=== PATIENT | male | born 1980 | race Caucasian/White ===

== ENCOUNTER 2018-07-09 11:35 | Inpatient (IN) | payer OTHER ==
[2018-07-09 12:41] VITALS: BMI 33.0
--- NOTE | 2018-07-09 14:42 | HP ---
CIWA Score Nausea/Vomitin Muscle Tremors: 7-Severe,w/o Arm Extended Anxiety: 4-Mod. Anxious/Guarded Agitation: 1-Slight > Activity Paroxysmal Sweats: 2 Orientation: 0-Oriented Tacttile Disturbances: 0-None Auditory Disturbances: 0-None Visual Disturbances: 2-Mild Sensitivity Headache: 3-Moderate CIWA-Ar Total Score: 21 - Admission Criteria OASAS Guidelines: Admission for Medically Managed Detox: Requires at least one of the followin. CIWA greater than 12 2. Seizures within the past 24 hours 3. Delirium tremens within the past 24 hours 4. Hallucinations within the past 24 hours 5. Acute intervention needed for co occurring medical disorder 6. Acute intervention needed for co occurring psychiatric disorder 7. Severe withdrawal that cannot be handled at a lower level of care (continued vomiting, continued diarrhea, abnormal vital signs) requiring intravenous medication and/or fluids 8. Patient presents the following: CIWA greater than 12 Admission Criteria Met: Admission criteria met Admission ROS [facility] Allergies/Adverse Reactions: Allergies Allergy/AdvReac Type Severity Reaction Status Date / Time phenobarbital Allergy Severe Hives Verified 07/09/18 15:38 Fish Containing Products Allergy Verified 07/09/18 15:38 History of Present Illness: patient here requesting detox fro etoh use , reports 1 pint /day x several months , reports tremors , w/d seizure x 2 most recently 1 year ago went to [facility] , latest use today current Gwendolyn 0.027 , reports finished all rx benzo # 150 from 07/05/18 reports he gave them to his sisters and took 7 at a time daily up to 10 x /day . Denies DUi/ DWI , has DL , denies driving while intoxicated. heroin : since age 22 , inhalation x 10 years , then IVDU in [place] , latest use 2 days ago 2 bundles , needles from pharmacy , denies sharing, + re-using , denies abscess, denies OD , on MMTP since 8 years ago @ [facility] , highest dose 180 mg , prior MMTP in 2001 -2002 , highest dose 100 mg Marisol [place] , tapered off , sober x 1 year . utox + fen , denies use tobacco ; denies cocaine - occasional use cannabis use - in the past , first age of use 11 . PMHX :denies PSHx :jose 4 years ago PSych : anxiety SHx : evicted from apartment , unemployed , finances habit through " side jobs " . denies other legal issues . no children Exam Limitations: Clinical Condition - Ebola screening Have you traveled outside of the country in the last 21 days: No Have you had contact with anyone from an Ebola affected area: No Have you been sick,other than usual withdrawal symptoms: No Do you have a fever: No - Review of Systems Constitutional: See HPI EENT: reports: Other (denies vision loss, denies dysphagia) Respiratory: reports: No Symptoms reported Cardiac: reports: No Symptoms Reported GI: reports: See HPI : reports: No Symptoms Reported Musculoskeletal: reports: See HPI Integumentary: reports: See HPI Neuro: reports: Headache Endocrine: reports: No Symptoms Reported Psychiatric: reports: Orientated x3, Agitated, Anxious Patient History - Smoking Cessation Smoking history: Never smoked - Substances Abused Alcohol-vodka Route: Oral Frequency: Daily Amount used: 2 pts. Age of first use: 13 Date of Last Use: 07/08/18 Xanax Route: Oral Amount used: 10 tabs. (2 mg.) Age of first use: 33 Date of Last Use: 07/09/18 Family Disease History - Family Disease History Family Disease History: CA: Mother (ovarian CA 59 ), Other: Father (62 A & W ) , Mother, Brother (1 half- brother Lyme dz ), Sister ( 2 sisters A & W ,1 sister 27 d. 2 y. ago heroin OD ) Admission Physical Exam BHS - Vital Signs Vital Signs: Vital Signs - 24 hr 07/09/18 12:38 Temperature 98.1 F Pulse Rate 81 Respiratory 20 Rate Blood Pressure 137/96 - Physical General Appearance: Yes: Disheveled, Moderate Distress HEENTM: Yes: EOMI, Hearing grossly Normal, Normocephalic, Normal Voice Respiratory: Yes: Chest Non-Tender, Lungs Clear, Normal Breath Sounds Neck: Yes: No masses,lesions,Nodules Breast: Yes: Breast Exam Deferred Cardiology: Yes: Regular Rhythm, Regular Rate, S1, S2 Abdominal: Yes: Normal Bowel Sounds, Non Tender, Soft, Protuberent Genitourinary: Yes: Within Normal Limits Back: Yes: Normal Inspection Extremities: Yes: Tremors Neurological: Yes: Motor Strength 5/5 Integumentary: Yes: Track Murray - Diagnostic (1) Alcohol dependence Current Visit: Yes Status: Acute Qualifiers: Substance use status: in withdrawal (2) Opioid dependence on agonist therapy Current Visit: Yes Status: Chronic (3) Sedative, hypnotic or anxiolytic abuse Current Visit: Yes Status: Acute (4) Nicotine dependence Current Visit: Yes Status: Chronic Qualifiers: Nicotine product type: cigarettes BHS Breath Alcohol Content Breath Alcohol Content: 0.027 Urine Drug Screen - Results Drug Screen Negative: No Urine Drug Screen Results: OPI-Opiates, AMP-Amphetamines, MET-Methamphetamine, BZO-Benzodiazepines, MTD-Methadone, FEN-Fentanyl
[2018-07-09] MEDS ORDERED: ACETAMINOPHEN 325 MG TABLET (FP) PO PRN (14:48)
[2018-07-09] MEDS ORDERED: MENTHOL/PHENOL 1 EACH UD MM PRN (14:48)
[2018-07-09] MEDS ORDERED: MAGNESIUM CITRATE 300 ML BOTTLE PO PRN (14:48)
[2018-07-09] MEDS ORDERED: MAG HYDROX/AL HYDROX/SIMETH 30 ML UNIT-DOSE CUP PO PRN (14:48)
[2018-07-09] MEDS ORDERED: P-EPHED 60MG/TRIPROLIDI 2.5MG TABLET PO PRN (14:48)
[2018-07-09] MEDS ORDERED: MAGNESIUM HYDROX 2400MG/30ML ORAL SUSPENSION 30 ML CUP PO PRN (14:48)
[2018-07-09] MEDS ORDERED: NICOTINE POLACRILEX 2 MG GUM BC PRN (14:48)
[2018-07-09] MEDS ORDERED: IBUPROFEN 400 MG TABLET (FP) PO PRN (14:48)
[2018-07-09] MEDS ORDERED: guaiFENesin/D-METHORPHAN HB 10 ML UNIT-DOSE CUPS PO PRN (14:48)
[2018-07-09] MEDS ORDERED: hydrOXYzine PAMOATE 25 MG CAPSULE (FP) PO PRN (14:53)
[2018-07-09] MEDS: chlordiazePOXIDE HCL 25 MG CAPSULE PO SCH ×2 (17:09→22:17)
[2018-07-09] MEDS: chlordiazePOXIDE HCL 25 MG CAPSULE PO PRN (20:25)
[2018-07-09] MEDS ORDERED: MELATONIN 5 MG TABLETS PO PRN (22:00)
[2018-07-09] MEDS: THIAMINE HCL 100 MG TABLET (FP) PO SCH (22:17)
[2018-07-10] MEDS: chlordiazePOXIDE HCL 25 MG CAPSULE PO SCH ×2 (05:23→10:44)
[2018-07-10] MEDS ORDERED: METHADONE HCL 10 MG TABLET PO SCH (06:00)
[2018-07-10] MEDS ORDERED: METHADONE HCL 10 MG TABLET ONE (09:02)
[2018-07-10] MEDS ORDERED: METHADONE HCL 40 MG DISPERSABLE TABLET ONE (09:03)
[2018-07-10 10:32] LABS: HEMATOCRIT 39.5 % (35.4-49); HEMOGLOBIN 13.1 GM/dL (11.7-16.9); MCH 29.5 pg (25.7-33.7); MCHC 33.2 g/dl (32.0-35.9); MEAN CELL VOLUME 88.9 fl (80-96); MEAN PLT VOLUME 9.3 fl (7.5-11.1); PLATELET COUNT 248 K/MM3 (134-434); RBC 4.44 M/mm3 (4.00-5.60); RDW 13.9 % (11.9-15.9); WHITE BLOOD COUNT 4.8 K/mm3 (4.0-10.0)
[2018-07-10] MEDS: METHADONE 120 MG, METHADONE 20 MG PO SCH (10:44)
[2018-07-10 10:51] LABS: ALBUMIN 4.2 g/dl (3.4-5.0); ALK PHOS 80 U/L (45-117); ANION GAP 8 MMOL/L (8-16); BILIRUBIN,TOTAL 0.6 mg/dL (0.2-1); BLOOD UREA NITROGEN 14 mg/dL (7-18); CALCIUM 9.9 mg/dL (8.5-10.1); CHLORIDE 102 mmol/L (98-107); CO2 29 mmol/L (21-32); CREATININE 0.9 mg/dL (0.55-1.3); GLUCOSE,RANDOM 78 mg/dL (74-106); POTASSIUM 4.2 mmol/L (3.5-5.1); SGOT/AST 15 U/L (15-37); SGPT/ALT 24 U/L (13-61); SODIUM 139 mmol/L (136-145); TOT PROT 8.1 g/dl (6.4-8.2)
[2018-07-10] MEDS: PRENATAL VITAMINS W/ FOLIC ACID TABLET (FP) PO SCH (11:14)
--- NOTE | 2018-07-10 11:25 | PN ---
S CIWA - CIWA Score Nausea/Vomitin-Mild Nausea/No Vomiting Muscle Tremors: 4-Moderate,w/Arms Extend Anxiety: 4-Mod. Anxious/Guarded Agitation: 4-Moderately Restless Paroxysmal Sweats: 1-Minimal Palms Moist Orientation: 1-Uncertain about Date Tacttile Disturbances: 0-None Auditory Disturbances: 0-None Visual Disturbances: 0-None Headache: 2-Mild CIWA-Ar Total Score: 17 BHS Progress Note (SOAP) Subjective: tremor sweating trouble sleep at night Objective: 07/10/18 11:24 Vital Signs Temperature 96.9 F L 07/10/18 09:08 Pulse Rate 70 07/10/18 09:08 Respiratory Rate 18 07/10/18 09:08 Blood Pressure 110/68 07/10/18 09:08 O2 Sat by Pulse Oximetry (%) Laboratory Last Values WBC 4.8 K/mm3 (4.0-10.0) 07/10/18 06:00 RBC 4.44 M/mm3 (4.00-5.60) 07/10/18 06:00 Hgb 13.1 GM/dL (11.7-16.9) 07/10/18 06:00 Hct 39.5 % (35.4-49) 07/10/18 06:00 MCV 88.9 fl (80-96) 07/10/18 06:00 MCH 29.5 pg (25.7-33.7) 07/10/18 06:00 MCHC 33.2 g/dl (32.0-35.9) 07/10/18 06:00 RDW 13.9 % (11.9-15.9) 07/10/18 06:00 Plt Count 248 K/MM3 (134-434) 07/10/18 06:00 MPV 9.3 fl (7.5-11.1) 07/10/18 06:00 Sodium 139 mmol/L (136-145) 07/10/18 06:00 Potassium 4.2 mmol/L (3.5-5.1) 07/10/18 06:00 Chloride 102 mmol/L (98-107) 07/10/18 06:00 Carbon Dioxide 29 mmol/L (21-32) 07/10/18 06:00 Anion Gap 8 MMOL/L (8-16) 07/10/18 06:00 BUN 14 mg/dL (7-18) 07/10/18 06:00 Creatinine 0.9 mg/dL (0.55-1.3) 07/10/18 06:00 Creat Clearance w eGFR > 60 (>60) 07/10/18 06:00 Random Glucose 78 mg/dL (74-106) 07/10/18 06:00 Calcium 9.9 mg/dL (8.5-10.1) 07/10/18 06:00 Total Bilirubin 0.6 mg/dL (0.2-1) 07/10/18 06:00 AST 15 U/L (15-37) 07/10/18 06:00 ALT 24 U/L (13-61) 07/10/18 06:00 Alkaline Phosphatase 80 U/L (45-117) 07/10/18 06:00 Total Protein 8.1 g/dl (6.4-8.2) 07/10/18 06:00 Albumin 4.2 g/dl (3.4-5.0) 07/10/18 06:00 lab noted Assessment: 07/10/18 11:25 withdrawal sx Plan: continue detox
--- NOTE | 2018-07-10 13:39 | CONSULT ---
[facility] Psychiatric Consult - Data Date of interview: 07/10/18 Admission source: Self-referred Identifying data: Mr Roberts is a 38 years old single male, unemployed with no source of income, living with parents seking detox for alcohol and benzodiazepine Substance Abuse History: Reports history of alcohol and xanax use. Refer to addiction counselor's summary for further information Medical History: unremarkable except for history of alcohol withdraal seizure. Patient is on methadone 180 mg/day Psychiatric History: Reports being diagnosed with ADHD and anxiety 14 years ago and started on medications. Reports seeing a private psychiatrist located on [facility] in [place], [place] for the past 11 years. Reports being prescribed Zoloft 50 mg po daily, Xanax 2 mg 5x daily and Adderal 30 mg. Reports that he saw that psychiatrist last last week. However the psychiatrist does not want to see him anymore because he is abusing Xanax and buying it off the street. Denies previous psychiatric hospitalization or suicidl attempt. At present, reorts feeling anxious and sleeping poorly. He does not want to continue Zoloft citing he gets no help from it Physical/Sexual Abuse/Trauma History: Denies history of emotional, physical or sexual abuse as well as DV relationship Mental Status Exam - Mental Status Exam Alert and Oriented to: Time, Place Cognitive Function: Fair Patient Appearance: Well Groomed Mood: Anxious Affect: Appropriate Patient Behavior: Cooperative Speech Pattern: Clear Voice Loudness: Normal Thought Process: Intact, Goal Oriented Hallucinations: Denies Suicidal Ideation: Denies Insight/Judgement: Fair Sleep: Poorly Appetite: Good Muscle strength/Tone: Normal Gait/Station: Normal Psychiatric Findings - Problem List ([place] 1, 2,3) (1) ADHD (attention deficit hyperactivity disorder), inattentive type Current Visit: Yes Status: Chronic (2) Anxiety disorder Current Visit: Yes Status: Chronic (3) Substance-induced anxiety disorder Current Visit: Yes Status: Acute (4) Substance-induced sleep disorder Current Visit: Yes Status: Acute (5) Alcohol dependence with withdrawal Current Visit: Yes Status: Acute (6) Sedative, hypnotic or anxiolytic dependence with withdrawal, unspecified Current Visit: Yes Status: Acute (7) Opioid dependence on agonist therapy Current Visit: Yes Status: Chronic - Initial Treatment Plan Initial Treatment Plan: 1) Start Belsomra 10 mg po HS prn for insomnia and Hydroxizine 50 mg po Q 4hrs prn for anxiety. 2) Continue inpatient detoxification
[2018-07-10] MEDS ORDERED: hydrOXYzine PAMOATE 50 MG CAPSULE (FP) PO PRN (13:45)
[2018-07-10] MEDS: chlordiazePOXIDE HCL 10 MG CAPSULE PO SCH ×2 (17:31→22:32)
[2018-07-10] MEDS: THIAMINE HCL 100 MG TABLET (FP) PO SCH (22:32)
[2018-07-11] MEDS: chlordiazePOXIDE HCL 10 MG CAPSULE PO SCH ×2 (05:28→10:19)
--- NOTE | 2018-07-11 10:08 | PN ---
S CIWA - CIWA Score Nausea/Vomitin-Mild Nausea/No Vomiting Muscle Tremors: 3 Anxiety: 2 Agitation: 2 Paroxysmal Sweats: 1-Minimal Palms Moist Orientation: 0-Oriented Tacttile Disturbances: 0-None Auditory Disturbances: 0-None Visual Disturbances: 0-None Headache: 2-Mild CIWA-Ar Total Score: 11 S Progress Note (SOAP) Subjective: tremor sweating trouble concentration Objective: 07/11/18 10:18 Vital Signs Temperature 97.5 F L 07/11/18 09:14 Pulse Rate 73 07/11/18 09:14 Respiratory Rate 17 07/11/18 09:14 Blood Pressure 102/63 07/11/18 09:14 O2 Sat by Pulse Oximetry (%) Laboratory Last Values WBC 4.8 K/mm3 (4.0-10.0) 07/10/18 06:00 RBC 4.44 M/mm3 (4.00-5.60) 07/10/18 06:00 Hgb 13.1 GM/dL (11.7-16.9) 07/10/18 06:00 Hct 39.5 % (35.4-49) 07/10/18 06:00 MCV 88.9 fl (80-96) 07/10/18 06:00 MCH 29.5 pg (25.7-33.7) 07/10/18 06:00 MCHC 33.2 g/dl (32.0-35.9) 07/10/18 06:00 RDW 13.9 % (11.9-15.9) 07/10/18 06:00 Plt Count 248 K/MM3 (134-434) 07/10/18 06:00 MPV 9.3 fl (7.5-11.1) 07/10/18 06:00 Sodium 139 mmol/L (136-145) 07/10/18 06:00 Potassium 4.2 mmol/L (3.5-5.1) 07/10/18 06:00 Chloride 102 mmol/L (98-107) 07/10/18 06:00 Carbon Dioxide 29 mmol/L (21-32) 07/10/18 06:00 Anion Gap 8 MMOL/L (8-16) 07/10/18 06:00 BUN 14 mg/dL (7-18) 07/10/18 06:00 Creatinine 0.9 mg/dL (0.55-1.3) 07/10/18 06:00 Creat Clearance w eGFR > 60 (>60) 07/10/18 06:00 Random Glucose 78 mg/dL (74-106) 07/10/18 06:00 Calcium 9.9 mg/dL (8.5-10.1) 07/10/18 06:00 Total Bilirubin 0.6 mg/dL (0.2-1) 07/10/18 06:00 AST 15 U/L (15-37) 07/10/18 06:00 ALT 24 U/L (13-61) 07/10/18 06:00 Alkaline Phosphatase 80 U/L (45-117) 07/10/18 06:00 Total Protein 8.1 g/dl (6.4-8.2) 07/10/18 06:00 Albumin 4.2 g/dl (3.4-5.0) 07/10/18 06:00 RPR Titer Nonreactive (NONREACTIVE) 07/10/18 06:00 07/11/18 10:24 lab noted Assessment: 07/11/18 10:24 withdrawal sx Plan: continue detox
[2018-07-11] MEDS ORDERED: METHADONE HCL 10 MG TABLET ONE (10:18)
[2018-07-11] MEDS ORDERED: METHADONE HCL 40 MG DISPERSABLE TABLET ONE (10:18)
[2018-07-11] MEDS: PRENATAL VITAMINS W/ FOLIC ACID TABLET (FP) PO SCH (10:19)
[2018-07-11] MEDS: METHADONE 120 MG, METHADONE 20 MG PO SCH (10:23)
[2018-07-11] MEDS: chlordiazePOXIDE HCL 25 MG CAPSULE PO PRN (12:09)
[2018-07-11] MEDS: chlordiazePOXIDE HCL 25 MG CAPSULE PO SCH ×2 (16:48→22:00)
[2018-07-11] MEDS: THIAMINE HCL 100 MG TABLET (FP) PO SCH (22:00)
[2018-07-12] MEDS: chlordiazePOXIDE HCL 25 MG CAPSULE PO SCH ×2 (06:04→10:31)
[2018-07-12] MEDS ORDERED: METHADONE HCL 40 MG DISPERSABLE TABLET ONE (10:29)
[2018-07-12] MEDS ORDERED: METHADONE HCL 10 MG TABLET ONE (10:29)
[2018-07-12] MEDS: METHADONE 120 MG, METHADONE 20 MG PO SCH (10:30)
[2018-07-12] MEDS: PRENATAL VITAMINS W/ FOLIC ACID TABLET (FP) PO SCH (10:31)
[2018-07-12] MEDS: chlordiazePOXIDE HCL 25 MG CAPSULE PO PRN (12:42)
[2018-07-12] MEDS ORDERED: CYCLOBENZAPRINE HCL 10 MG TABLET (FP) PO PRN (14:08)
--- NOTE | 2018-07-12 15:50 | PN ---
BHS Progress Note (SOAP) Subjective: Sweating, Body Aches, Constipation, Tremors, H/A, Poor Appetite. Objective: PATIENT A & O X 3, OBSERVED AMBULATING ON UNIT. IN NO ACUTE DISTRESS. 07/12/18 15:49 Vital Signs Temperature 98.4 F 07/12/18 14:01 Pulse Rate 83 07/12/18 14:01 Respiratory Rate 18 07/12/18 14:01 Blood Pressure 133/82 07/12/18 14:01 O2 Sat by Pulse Oximetry (%) Laboratory Tests 07/10/18 07/10/18 07/10/18 06:00 06:00 06:00 WBC 4.8 RBC 4.44 Hgb 13.1 Hct 39.5 MCV 88.9 MCH 29.5 MCHC 33.2 RDW 13.9 Plt Count 248 MPV 9.3 Sodium 139 Potassium 4.2 Chloride 102 Carbon Dioxide 29 Anion Gap 8 BUN 14 Creatinine 0.9 Creat Clearance w eGFR > 60 Random Glucose 78 Calcium 9.9 Total Bilirubin 0.6 AST 15 ALT 24 Alkaline Phosphatase 80 Total Protein 8.1 Albumin 4.2 RPR Titer Nonreactive LABS NOTED. Assessment: 07/12/18 15:49 WITHDRAWAL SYMPTOMS. Plan: CONTINUE DETOX. INCREASE DAILY PO FLUID INTAKE.
[2018-07-12] MEDS: chlordiazePOXIDE 5 MG CAPSULE PO SCH ×2 (17:28→22:14)
[2018-07-12] MEDS: THIAMINE HCL 100 MG TABLET (FP) PO SCH (22:14)
[2018-07-13] MEDS: chlordiazePOXIDE 5 MG CAPSULE PO SCH ×2 (05:45→10:32)
[2018-07-13] MEDS ORDERED: METHADONE HCL 10 MG TABLET ONE (10:30)
[2018-07-13] MEDS ORDERED: METHADONE HCL 40 MG DISPERSABLE TABLET ONE (10:31)
[2018-07-13] MEDS: PRENATAL VITAMINS W/ FOLIC ACID TABLET (FP) PO SCH (10:32)
[2018-07-13] MEDS: METHADONE 120 MG, METHADONE 20 MG PO SCH (10:33)
--- NOTE | 2018-07-13 15:09 | PN ---
BHS Progress Note (SOAP) Subjective: Stomach Cramping, Tremors, Sweating, Anxious, Body Aches. Objective: PATIENT A & O X 3, OBSERVED AMBULATING ON UNIT. IN NO ACUTE DISTRESS. 07/13/18 15:08 Vital Signs Temperature 98.6 F 07/13/18 13:21 Pulse Rate 84 07/13/18 13:21 Respiratory Rate 16 07/13/18 13:21 Blood Pressure 110/64 07/13/18 13:21 O2 Sat by Pulse Oximetry (%) Laboratory Tests 07/10/18 07/10/18 07/10/18 06:00 06:00 06:00 WBC 4.8 RBC 4.44 Hgb 13.1 Hct 39.5 MCV 88.9 MCH 29.5 MCHC 33.2 RDW 13.9 Plt Count 248 MPV 9.3 Sodium 139 Potassium 4.2 Chloride 102 Carbon Dioxide 29 Anion Gap 8 BUN 14 Creatinine 0.9 Creat Clearance w eGFR > 60 Random Glucose 78 Calcium 9.9 Total Bilirubin 0.6 AST 15 ALT 24 Alkaline Phosphatase 80 Total Protein 8.1 Albumin 4.2 RPR Titer Nonreactive labs noted. Assessment: 07/13/18 15:08 WITHDRAWAL SYMPTOMS. Plan: CONTINUE DETOX. INCREASE DAILY PO FLUID INTAKE.
[2018-07-13] MEDS: chlordiazePOXIDE HCL 10 MG CAPSULE PO SCH ×2 (17:39→22:18)
[2018-07-13] MEDS: THIAMINE HCL 100 MG TABLET (FP) PO SCH (22:18)
[2018-07-14] MEDS: chlordiazePOXIDE HCL 10 MG CAPSULE PO SCH (05:36)
[2018-07-14 06:23] VITALS: BP 102/63; PULSE 69; TEMP 97.3
[2018-07-14] MEDS ORDERED: METHADONE 120 MG, METHADONE 20 MG PO SCH ×2 (08:43→10:00)
[2018-07-14] MEDS ORDERED: METHADONE HCL 10 MG TABLET ONE (08:57)
[2018-07-14] MEDS ORDERED: METHADONE HCL 40 MG DISPERSABLE TABLET ONE (08:58)
--- NOTE | 2018-07-14 11:33 | DS ---
[facility] Detox Discharge Summary Admission Date: 07/09/18 Discharge Date: 07/14/18 - History Present History: Alcohol Dependence Additional Comments: 38 years old male admitted on 07/09/18 for alcohol withdrawal stabilization completed detox regimen [facility] Mr. Roberts has been provided a list of medication and informed adherence with medications as prescribed keep a copy of medication list in wallet update your medication list whenever a medication change is made - Physical Exam Results Vital Signs: Vital Signs Temperature 97.3 F L 07/14/18 06:21 Pulse Rate 69 07/14/18 06:21 Respiratory Rate 18 07/14/18 06:21 Blood Pressure 102/63 07/14/18 06:21 O2 Sat by Pulse Oximetry (%) Pertinent Admission Physical Exam Findings: alcohol withdrawal sx Laboratory Last Values WBC 4.8 K/mm3 (4.0-10.0) 07/10/18 06:00 RBC 4.44 M/mm3 (4.00-5.60) 07/10/18 06:00 Hgb 13.1 GM/dL (11.7-16.9) 07/10/18 06:00 Hct 39.5 % (35.4-49) 07/10/18 06:00 MCV 88.9 fl (80-96) 07/10/18 06:00 MCH 29.5 pg (25.7-33.7) 07/10/18 06:00 MCHC 33.2 g/dl (32.0-35.9) 07/10/18 06:00 RDW 13.9 % (11.9-15.9) 07/10/18 06:00 Plt Count 248 K/MM3 (134-434) 07/10/18 06:00 MPV 9.3 fl (7.5-11.1) 07/10/18 06:00 Sodium 139 mmol/L (136-145) 07/10/18 06:00 Potassium 4.2 mmol/L (3.5-5.1) 07/10/18 06:00 Chloride 102 mmol/L (98-107) 07/10/18 06:00 Carbon Dioxide 29 mmol/L (21-32) 07/10/18 06:00 Anion Gap 8 MMOL/L (8-16) 07/10/18 06:00 BUN 14 mg/dL (7-18) 07/10/18 06:00 Creatinine 0.9 mg/dL (0.55-1.3) 07/10/18 06:00 Creat Clearance w eGFR > 60 (>60) 07/10/18 06:00 Random Glucose 78 mg/dL (74-106) 07/10/18 06:00 Calcium 9.9 mg/dL (8.5-10.1) 07/10/18 06:00 Total Bilirubin 0.6 mg/dL (0.2-1) 07/10/18 06:00 AST 15 U/L (15-37) 07/10/18 06:00 ALT 24 U/L (13-61) 07/10/18 06:00 Alkaline Phosphatase 80 U/L (45-117) 07/10/18 06:00 Total Protein 8.1 g/dl (6.4-8.2) 07/10/18 06:00 Albumin 4.2 g/dl (3.4-5.0) 07/10/18 06:00 RPR Titer Nonreactive (NONREACTIVE) 07/10/18 06:00 lab noted - Treatment Hospital Course: Detox Protocol Followed, Detoxed Safely, Responded well, Discharged Condition Good, Rehab Referral Accepted Patient has Accepted a Rehab Referral to: [facility] - Medication Discharge Medications: Ambulatory Orders Dextroamphetamine/Amphetamine [Adderall Xr 30 mg Capsule] 30 mg PO DAILY Sertraline HCl [Zoloft -] 100 mg PO DAILY 07/09/18 - Diagnosis (1) Alcohol dependence with withdrawal Status: Acute Qualifiers: Complication of substance-induced condition: uncomplicated Qualified Code(s ): F10.230 - Alcohol dependence with withdrawal, uncomplicated (2) Sedative, hypnotic or anxiolytic dependence with withdrawal, unspecified Status: Acute (3) Nicotine dependence Status: Acute Qualifiers: Nicotine product type: cigarettes Substance use status: in withdrawal Qualified Code(s): F17.213 - Nicotine dependence, cigarettes, with withdrawal (4) Methadone maintenance therapy patient Status: Chronic - AMA Did Patient Leave Against Medical Advice: No
== END 2018-07-14 09:06 | disposition home or self-care (01) | DRG 773 ==
LOC: YASAS 11:35 → Y3N 16:20
PROVIDERS: ADMIT Neuromusculoskeletal Medicine & OMM; ATTEND Neuromusculoskeletal Medicine & OMM
PROC: HZ2ZZZZ Detoxification Services for Substance Abuse Treatment (ICD-10-PCS; principal; 2018-07-09)
DX: F10.230 Alcohol dependence with withdrawal, uncomplicated (principal); F13.230 Sedative, hypnotic or anxiolytic dependence with withdrawal, uncomplicated; F11.20 Opioid dependence, uncomplicated; F17.213 Nicotine dependence, cigarettes, with withdrawal; F19.280 Other psychoactive substance dependence with psychoactive substance-induced anxiety disorder; F19.282 Other psychoactive substance dependence with psychoactive substance-induced sleep disorder; F41.9 Anxiety disorder, unspecified; F90.0 Attention-deficit hyperactivity disorder, predominantly inattentive type
CPT/HCPCS: 36415; 80053; 85027; 86593

== ENCOUNTER 2019-01-25 14:12 | Inpatient (IN) | payer OTHER | END 2019-01-30 13:56 | disposition other institution (70) | LOC: YASAS 14:12 → Y3N 20:59 ==

== ENCOUNTER 2019-01-30 14:12 | Inpatient (IN) | payer OTHER ==
[2019-01-30] MEDS ORDERED: LOPERAMIDE HCL 2 MG CAPSULE PO PRN (15:16)
[2019-01-30] MEDS ORDERED: MAG HYDROX/AL HYDROX/SIMETH 30 ML UNIT-DOSE CUP PO PRN (15:16)
[2019-01-30] MEDS ORDERED: MAGNESIUM HYDROX 2400MG/30ML ORAL SUSPENSION 30 ML CUP PO PRN (15:16)
[2019-01-30] MEDS ORDERED: ACETAMINOPHEN 325 MG TABLET (FP) PO PRN (15:16)
[2019-01-30] MEDS ORDERED: P-EPHED 60MG/TRIPROLIDI 2.5MG TABLET PO PRN (15:16)
[2019-01-30] MEDS ORDERED: MAGNESIUM CITRATE 300 ML BOTTLE PO PRN (15:16)
[2019-01-30] MEDS ORDERED: guaiFENesin 200 MG/10 ML 10 ML UNIT-DOSE CUPS PO PRN (15:16)
[2019-01-30] MEDS ORDERED: MENTHOL/PHENOL 1 EACH UD MM PRN (15:16)
[2019-01-30] MEDS ORDERED: IBUPROFEN 400 MG TABLET (FP) PO PRN (15:16)
--- NOTE | 2019-01-30 15:16 | HP ---
[facility] Rehab Assess/Revision - Admission History Admitted to Rehab from: [facility] Date of Admission to Rehab: 01/30/19 - Findings Detox History & Physical reviewed: Yes Concur with findings: Yes Comments/Additional Findings: transferred from [facility] to rehab admission as per protocol Inpatient Rehab Admission - Rehab Decision to Admit Inpatient rehab admission?: Yes - Initial Determination Are CD services needed?: Yes Free of communicable disease: Yes Not in need of hospitalization: Yes - Rehab Admission Criteria Previous failed treatment: Yes Poor recovery environment: Yes Comorbidities: Yes Lacks judgement: No Patient is meeting Inpatient Rehab admission criteria:: Yes
[2019-01-30] MEDS: THIAMINE HCL 100 MG TABLET (FP) PO SCH (21:14)
[2019-01-30] MEDS ORDERED: MELATONIN 5 MG TABLETS PO PRN (22:00)
[2019-01-30] MEDS ORDERED: traZODone HCL 50 MG TABLET (FP) PO PRN (22:00)
[2019-01-31] MEDS ORDERED: METHADONE HCL 10 MG TABLET ONE (05:10)
[2019-01-31] MEDS ORDERED: METHADONE HCL 40 MG DISPERSABLE TABLET ONE (05:11)
[2019-01-31] MEDS ORDERED: METHADONE HCL 5 MG TABLET ONE (05:11)
[2019-01-31] MEDS ORDERED: METHADONE HCL 10 MG TABLET PO SCH (06:00)
[2019-01-31] MEDS: METHADONE 160 MG, METHADONE 10 MG, METHADONE 5 MG PO SCH (06:09)
[2019-01-31] MEDS: PRENATAL VITAMINS W/ FOLIC ACID TABLET (FP) PO SCH (10:21)
[2019-01-31] MEDS: THIAMINE HCL 100 MG TABLET (FP) PO SCH (21:29)
[2019-01-31] MEDS: hydrOXYzine PAMOATE 50 MG CAPSULE (FP) PO PRN (21:30)
[2019-02-01] MEDS ORDERED: METHADONE HCL 5 MG TABLET ONE (04:00)
[2019-02-01] MEDS ORDERED: METHADONE HCL 10 MG TABLET ONE (04:00)
[2019-02-01] MEDS ORDERED: METHADONE HCL 40 MG DISPERSABLE TABLET ONE (04:00)
[2019-02-01] MEDS: METHADONE 160 MG, METHADONE 10 MG, METHADONE 5 MG PO SCH (06:16)
[2019-02-01] MEDS: hydrOXYzine PAMOATE 50 MG CAPSULE (FP) PO PRN ×2 (10:39→19:22)
[2019-02-01] MEDS: PRENATAL VITAMINS W/ FOLIC ACID TABLET (FP) PO SCH (10:39)
[2019-02-01] MEDS: THIAMINE HCL 100 MG TABLET (FP) PO SCH (23:00)
[2019-02-02] MEDS ORDERED: METHADONE HCL 10 MG TABLET ONE (03:54)
[2019-02-02] MEDS ORDERED: METHADONE HCL 5 MG TABLET ONE (03:55)
[2019-02-02] MEDS ORDERED: METHADONE HCL 40 MG DISPERSABLE TABLET ONE (03:55)
[2019-02-02] MEDS: METHADONE 160 MG, METHADONE 10 MG, METHADONE 5 MG PO SCH (06:04)
[2019-02-02] MEDS: hydrOXYzine PAMOATE 50 MG CAPSULE (FP) PO PRN (06:07)
[2019-02-02] MEDS: PRENATAL VITAMINS W/ FOLIC ACID TABLET (FP) PO SCH (10:06)
[2019-02-02] MEDS: THIAMINE HCL 100 MG TABLET (FP) PO SCH (22:03)
[2019-02-03] MEDS ORDERED: METHADONE HCL 40 MG DISPERSABLE TABLET ONE (04:04)
[2019-02-03] MEDS ORDERED: METHADONE HCL 10 MG TABLET ONE (04:04)
[2019-02-03] MEDS ORDERED: METHADONE HCL 5 MG TABLET ONE (04:04)
[2019-02-03] MEDS: METHADONE 160 MG, METHADONE 10 MG, METHADONE 5 MG PO SCH (06:39)
[2019-02-03] MEDS: PRENATAL VITAMINS W/ FOLIC ACID TABLET (FP) PO SCH (09:59)
[2019-02-03] MEDS: hydrOXYzine PAMOATE 50 MG CAPSULE (FP) PO PRN (09:59)
[2019-02-03] MEDS: THIAMINE HCL 100 MG TABLET (FP) PO SCH (22:12)
[2019-02-04] MEDS ORDERED: METHADONE HCL 40 MG DISPERSABLE TABLET ONE (04:00)
[2019-02-04] MEDS ORDERED: METHADONE HCL 10 MG TABLET ONE (04:00)
[2019-02-04] MEDS ORDERED: METHADONE HCL 5 MG TABLET ONE (04:01)
[2019-02-04] MEDS: METHADONE 160 MG, METHADONE 10 MG, METHADONE 5 MG PO SCH (05:56)
[2019-02-04] MEDS: hydrOXYzine PAMOATE 50 MG CAPSULE (FP) PO PRN (06:05)
[2019-02-04] MEDS: PRENATAL VITAMINS W/ FOLIC ACID TABLET (FP) PO SCH (10:46)
[2019-02-04] MEDS: THIAMINE HCL 100 MG TABLET (FP) PO SCH (22:04)
[2019-02-05] MEDS ORDERED: METHADONE HCL 40 MG DISPERSABLE TABLET ONE (04:21)
[2019-02-05] MEDS ORDERED: METHADONE HCL 10 MG TABLET ONE (04:21)
[2019-02-05] MEDS ORDERED: METHADONE HCL 5 MG TABLET ONE (04:21)
[2019-02-05] MEDS: METHADONE 160 MG, METHADONE 10 MG, METHADONE 5 MG PO SCH (06:14)
[2019-02-05] MEDS: hydrOXYzine PAMOATE 50 MG CAPSULE (FP) PO PRN (06:16)
[2019-02-05] MEDS: PRENATAL VITAMINS W/ FOLIC ACID TABLET (FP) PO SCH (10:39)
[2019-02-05] MEDS: THIAMINE HCL 100 MG TABLET (FP) PO SCH (22:06)
[2019-02-06] MEDS ORDERED: METHADONE HCL 40 MG DISPERSABLE TABLET ONE (05:36)
[2019-02-06] MEDS ORDERED: METHADONE HCL 10 MG TABLET ONE (05:36)
[2019-02-06] MEDS ORDERED: METHADONE HCL 5 MG TABLET ONE (05:37)
[2019-02-06] MEDS: METHADONE 160 MG, METHADONE 10 MG, METHADONE 5 MG PO SCH (06:21)
[2019-02-06] MEDS: PRENATAL VITAMINS W/ FOLIC ACID TABLET (FP) PO SCH (10:02)
[2019-02-06] MEDS: hydrOXYzine PAMOATE 50 MG CAPSULE (FP) PO PRN ×2 (10:03→16:47)
[2019-02-06] MEDS: THIAMINE HCL 100 MG TABLET (FP) PO SCH (22:04)
[2019-02-07] MEDS ORDERED: METHADONE HCL 10 MG TABLET ONE (05:44)
[2019-02-07] MEDS ORDERED: METHADONE HCL 40 MG DISPERSABLE TABLET ONE (05:44)
[2019-02-07] MEDS ORDERED: METHADONE HCL 5 MG TABLET ONE (05:45)
[2019-02-07] MEDS: METHADONE 160 MG, METHADONE 10 MG, METHADONE 5 MG PO SCH (06:16)
[2019-02-07] MEDS: hydrOXYzine PAMOATE 50 MG CAPSULE (FP) PO PRN (08:57)
[2019-02-07] MEDS: PRENATAL VITAMINS W/ FOLIC ACID TABLET (FP) PO SCH (09:47)
[2019-02-07] MEDS: THIAMINE HCL 100 MG TABLET (FP) PO SCH (21:17)
[2019-02-08] MEDS ORDERED: METHADONE HCL 10 MG TABLET ONE (05:41)
[2019-02-08] MEDS ORDERED: METHADONE HCL 40 MG DISPERSABLE TABLET ONE (05:41)
[2019-02-08] MEDS ORDERED: METHADONE HCL 5 MG TABLET ONE (05:42)
[2019-02-08] MEDS: METHADONE 160 MG, METHADONE 10 MG, METHADONE 5 MG PO SCH (06:21)
[2019-02-08] MEDS: PRENATAL VITAMINS W/ FOLIC ACID TABLET (FP) PO SCH (11:12)
[2019-02-08] MEDS: hydrOXYzine PAMOATE 50 MG CAPSULE (FP) PO PRN (17:51)
[2019-02-08] MEDS: THIAMINE HCL 100 MG TABLET (FP) PO SCH (22:04)
[2019-02-09] MEDS ORDERED: METHADONE HCL 40 MG DISPERSABLE TABLET ONE (03:41)
[2019-02-09] MEDS ORDERED: METHADONE HCL 10 MG TABLET ONE (03:41)
[2019-02-09] MEDS ORDERED: METHADONE HCL 5 MG TABLET ONE (03:42)
[2019-02-09] MEDS: METHADONE 160 MG, METHADONE 10 MG, METHADONE 5 MG PO SCH (06:23)
[2019-02-09] MEDS: hydrOXYzine PAMOATE 50 MG CAPSULE (FP) PO PRN (09:28)
[2019-02-09] MEDS: PRENATAL VITAMINS W/ FOLIC ACID TABLET (FP) PO SCH (09:28)
[2019-02-09] MEDS: THIAMINE HCL 100 MG TABLET (FP) PO SCH (22:50)
[2019-02-10] MEDS ORDERED: METHADONE HCL 5 MG TABLET ONE (05:29)
[2019-02-10] MEDS ORDERED: METHADONE HCL 10 MG TABLET ONE (05:29)
[2019-02-10] MEDS ORDERED: METHADONE HCL 40 MG DISPERSABLE TABLET ONE (05:29)
[2019-02-10] MEDS: METHADONE 160 MG, METHADONE 10 MG, METHADONE 5 MG PO SCH (06:27)
[2019-02-10 07:09] VITALS: BP 127/87; PULSE 73; TEMP 98.1
--- NOTE | 2019-02-10 08:51 | DS ---
[facility] Rehab Discharge Summary - [facility] Rehab Discharge Summary Admission Date: 01/30/19 Discharge Date: 02/10/19 - History Pertinent Past History: History of Present Illness: Completed detox and was admitted to rehab on 01/27 Alcohol use began at age 12. Currently reports 1 liter/day x 5 months. Heroin use since age 22. Currently relapsing 1 x/wk via inhalation. Currently on [facility] MMTP w/ Methadone dose of 175 mg Po Daily. Last medicated today. Upon admission admited to using prescribed Xanax at doses higher than prescribed. Cocaine use began at age 14. Current use occasional; 2-3x/week PMHX: Denies MHHx: Anxiety; Occ depression. 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, No neurological deficits noted, Motor Strength 5/5, - Treatment Discharge Condition: Discharge condition good (accepted referral for aftercare at [facility] Hospital Course: Attended groups, adhered to treatment plan and medication regimen - Medication Discharge Medications: Ambulatory Orders Dextroamphetamine/Amphetamine [Adderall Xr 30 mg Capsule] 30 mg PO DAILY Alprazolam 2 mg PO BID 01/30/19 - Medication-Assisted Treatment (MAT) Medication-Assisted Treatment (MAT): No - Discharge Instructions Diet, activity, other medical instructions: Diet: As tolerated Activity: As tolerated Other medical instructions: Continue with aftercare and make an appointment with PCP within 2 weeks. - Diagnosis (1) Alcohol dependence Current Visit: No Status: Chronic Qualifiers: Substance use status: uncomplicated Qualified Code(s): F10.20 - Alcohol dependence, uncomplicated (2) Nicotine dependence Current Visit: No Status: Chronic Qualifiers: Nicotine product type: cigarettes Substance use status: in remission Qualified Code(s): F17.211 - Nicotine dependence, cigarettes, in remission (3) Sedative, hypnotic or anxiolytic abuse Current Visit: No Status: Chronic (4) Substance-induced sleep disorder Current Visit: No Status: Chronic - Follow-up Referral Minutes to complete discharge: 20 - AMA Did Patient Leave Against Medical Advice: No
== END 2019-02-10 09:25 | disposition home or self-care (01) | DRG 772 ==
LOC: YASAS 14:12 → Y3W 14:13
PROVIDERS: ADMIT Neuromusculoskeletal Medicine & OMM; ATTEND Neuromusculoskeletal Medicine & OMM
PROC: HZ42ZZZ Group Counseling for Substance Abuse Treatment, Cognitive-Behavioral (ICD-10-PCS; principal; 2019-01-30)
DX: F10.20 Alcohol dependence, uncomplicated (principal); F11.20 Opioid dependence, uncomplicated; F14.10 Cocaine abuse, uncomplicated; F13.10 Sedative, hypnotic or anxiolytic abuse, uncomplicated; F17.211 Nicotine dependence, cigarettes, in remission; F19.282 Other psychoactive substance dependence with psychoactive substance-induced sleep disorder; F41.9 Anxiety disorder, unspecified

== ENCOUNTER 2020-01-29 12:42 | Inpatient (IN) | payer OTHER ==
--- NOTE | 2020-01-29 10:29 | HP ---
[facility] Rehab Assess/Revision - Admission History Ad[facility]hab [facility] - Findings Detox History & Physical reviewed: Yes Concur with findings: Yes Inpatient Rehab Admission - Rehab Decision to Admit Inpatient rehab admission?: Yes - Initial Determination Are CD services needed?: Yes Free of communicable disease: Yes Not in need of hospitalization: Yes - Rehab Admission Criteria Previous failed treatment: Yes Poor recovery environment: Yes Comorbidities: Yes Lacks judgement: Yes Patient is meeting Inpatient Rehab admission criteria:: Yes
[2020-01-29] MEDS ORDERED: guaiFENesin 200 MG/10 ML 10 ML UNIT-DOSE CUPS PO PRN (15:20)
[2020-01-29] MEDS ORDERED: IBUPROFEN 400 MG TABLET (FP) PO PRN (15:20)
[2020-01-29] MEDS ORDERED: MAGNESIUM HYDROX 2400MG/30ML ORAL SUSPENSION 30 ML CUP PO PRN (15:20)
[2020-01-29] MEDS ORDERED: LOPERAMIDE HCL 2 MG CAPSULE PO PRN (15:20)
[2020-01-29] MEDS ORDERED: MENTHOL/PHENOL 1 EACH UD MM PRN (15:20)
[2020-01-29] MEDS ORDERED: MAG HYDROX/AL HYDROX/SIMETH 30 ML UNIT-DOSE CUP PO PRN (15:20)
[2020-01-29] MEDS ORDERED: ACETAMINOPHEN 325 MG TABLET (FP) PO PRN (15:20)
[2020-01-29] MEDS ORDERED: MAGNESIUM CITRATE 300 ML BOTTLE PO PRN (15:20)
[2020-01-29] MEDS ORDERED: P-EPHED 60MG/TRIPROLIDI 2.5MG TABLET PO PRN (15:20)
--- NOTE | 2020-01-29 15:30 | PN ---
S Progress Note Note: Pt is a 39 y/o male admitted to rehab from [address] [place] [address]. PMx of Seizure, last in 2019, Hep c. Psych hx:Bipolar Disorder Reports he has no current PCP but has a psychiatrist. Vital Signs - 24 hr 01/29/20 13:26 Temperature 97.3 F L Pulse Rate 58 L Respiratory 18 Rate Blood Pressure 115/71 O2 Sat by Pulse 96 Oximetry (%) Alert o x 3 no resp difficulty extremities, no swelling;skin intact, active ROM s/p detox Admit and cont rehab tx
[2020-01-29] MEDS: MELATONIN 5 MG TABLETS PO SCH (22:00)
[2020-01-29] MEDS: hydrOXYzine PAMOATE 25 MG CAPSULE (FP) PO PRN (22:01)
[2020-01-29] MEDS: THIAMINE HCL 100 MG TABLET (FP) PO SCH (22:01)
[2020-01-30] MEDS ORDERED: METHADONE HCL 10 MG TABLET ONE (04:25)
[2020-01-30] MEDS ORDERED: METHADONE HCL 40 MG DISPERSABLE TABLET ONE (04:25)
[2020-01-30] MEDS ORDERED: METHADONE HCL 10 MG TABLET PO SCH (06:00)
[2020-01-30] MEDS: METHADONE 80 MG, METHADONE 30 MG PO SCH (06:52)
[2020-01-30] MEDS: hydrOXYzine PAMOATE 25 MG CAPSULE (FP) PO PRN ×2 (06:54→11:00)
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
[2020-01-30] MEDS: PRENATAL VITAMINS W/ FOLIC ACID TABLET (FP) PO SCH (10:58)
[2020-01-30] MEDS: SERTRALINE HCL 50 MG TABLET (FP) PO SCH (10:59)
[2020-01-30] MEDS: GABAPENTIN 300 MG CAPSULE PO SCH ×2 (14:30→22:46)
[2020-01-30] MEDS: THIAMINE HCL 100 MG TABLET (FP) PO SCH (22:46)
[2020-01-30] MEDS: MELATONIN 5 MG TABLETS PO SCH (22:46)
[2020-01-30] MEDS: SUVOREXANT 15 MG TABLET PO PRN (22:49)
[2020-01-31] MEDS ORDERED: METHADONE HCL 10 MG TABLET ONE (04:01)
[2020-01-31] MEDS ORDERED: METHADONE HCL 40 MG DISPERSABLE TABLET ONE (04:02)
[2020-01-31] MEDS: GABAPENTIN 300 MG CAPSULE PO SCH ×3 (06:43→21:33)
[2020-01-31] MEDS: METHADONE 80 MG, METHADONE 30 MG PO SCH (06:43)
[2020-01-31] MEDS: SERTRALINE HCL 50 MG TABLET (FP) PO SCH (10:33)
[2020-01-31] MEDS: hydrOXYzine PAMOATE 25 MG CAPSULE (FP) PO PRN ×2 (10:34→21:33)
[2020-01-31] MEDS: PRENATAL VITAMINS W/ FOLIC ACID TABLET (FP) PO SCH (10:34)
[2020-01-31] MEDS: MELATONIN 5 MG TABLETS PO SCH (21:33)
[2020-01-31] MEDS: THIAMINE HCL 100 MG TABLET (FP) PO SCH (21:33)
[2020-01-31] MEDS: SUVOREXANT 15 MG TABLET PO PRN (21:33)
[2020-02-01] MEDS ORDERED: METHADONE HCL 40 MG DISPERSABLE TABLET ONE (04:07)
[2020-02-01] MEDS ORDERED: METHADONE HCL 10 MG TABLET ONE (04:07)
[2020-02-01] MEDS: METHADONE 80 MG, METHADONE 30 MG PO SCH (06:25)
[2020-02-01] MEDS: GABAPENTIN 300 MG CAPSULE PO SCH ×3 (06:25→21:58)
[2020-02-01] MEDS: PRENATAL VITAMINS W/ FOLIC ACID TABLET (FP) PO SCH (10:23)
[2020-02-01] MEDS: SERTRALINE HCL 50 MG TABLET (FP) PO SCH (10:23)
[2020-02-01] MEDS: hydrOXYzine PAMOATE 25 MG CAPSULE (FP) PO PRN ×2 (10:23→21:58)
[2020-02-01] MEDS: THIAMINE HCL 100 MG TABLET (FP) PO SCH (21:58)
[2020-02-01] MEDS: MELATONIN 5 MG TABLETS PO SCH (21:58)
[2020-02-01] MEDS: SUVOREXANT 15 MG TABLET PO PRN (21:58)
[2020-02-02] MEDS ORDERED: METHADONE HCL 10 MG TABLET ONE (04:59)
[2020-02-02] MEDS ORDERED: METHADONE HCL 40 MG DISPERSABLE TABLET ONE (04:59)
[2020-02-02] MEDS: METHADONE 80 MG, METHADONE 30 MG PO SCH (07:05)
[2020-02-02] MEDS: GABAPENTIN 300 MG CAPSULE PO SCH ×3 (07:07→22:11)
[2020-02-02] MEDS: SERTRALINE HCL 50 MG TABLET (FP) PO SCH (09:49)
[2020-02-02] MEDS: PRENATAL VITAMINS W/ FOLIC ACID TABLET (FP) PO SCH (09:49)
[2020-02-02] MEDS: hydrOXYzine PAMOATE 25 MG CAPSULE (FP) PO PRN ×3 (09:49→22:12)
[2020-02-02] MEDS: MELATONIN 5 MG TABLETS PO SCH (22:11)
[2020-02-02] MEDS: THIAMINE HCL 100 MG TABLET (FP) PO SCH (22:11)
[2020-02-03] MEDS ORDERED: METHADONE HCL 10 MG TABLET ONE (04:04)
[2020-02-03] MEDS ORDERED: METHADONE HCL 40 MG DISPERSABLE TABLET ONE (04:05)
[2020-02-03] MEDS: GABAPENTIN 300 MG CAPSULE PO SCH ×3 (06:53→21:53)
[2020-02-03] MEDS: METHADONE 80 MG, METHADONE 30 MG PO SCH (06:53)
[2020-02-03] MEDS: SERTRALINE HCL 50 MG TABLET (FP) PO SCH (10:49)
[2020-02-03] MEDS: PRENATAL VITAMINS W/ FOLIC ACID TABLET (FP) PO SCH (10:49)
[2020-02-03] MEDS: hydrOXYzine PAMOATE 25 MG CAPSULE (FP) PO PRN ×2 (10:50→21:53)
[2020-02-03] MEDS: MELATONIN 5 MG TABLETS PO SCH (21:53)
[2020-02-03] MEDS: THIAMINE HCL 100 MG TABLET (FP) PO SCH (21:53)
[2020-02-04] MEDS: GABAPENTIN 300 MG CAPSULE PO SCH ×3 (06:49→21:47)
[2020-02-04] MEDS ORDERED: METHADONE HCL 10 MG TABLET ONE (08:55)
[2020-02-04] MEDS ORDERED: METHADONE HCL 40 MG DISPERSABLE TABLET ONE (08:56)
[2020-02-04] MEDS: hydrOXYzine PAMOATE 25 MG CAPSULE (FP) PO PRN ×2 (10:43→21:47)
[2020-02-04] MEDS: PRENATAL VITAMINS W/ FOLIC ACID TABLET (FP) PO SCH (10:43)
[2020-02-04] MEDS: METHADONE 80 MG, METHADONE 30 MG PO SCH (10:44)
[2020-02-04] MEDS: SERTRALINE HCL 50 MG TABLET (FP) PO SCH (10:45)
--- NOTE | 2020-02-04 11:08 | PN ---
[facility] Progress Note Note: Psychiatric nurse practitioner note: Belsomra 15mg HS PRN ordered X3 days. Verbal consent given.
[2020-02-04] MEDS: THIAMINE HCL 100 MG TABLET (FP) PO SCH (21:47)
[2020-02-04] MEDS: SUVOREXANT 15 MG TABLET PO PRN (21:48)
[2020-02-04] MEDS: MELATONIN 5 MG TABLETS PO SCH (22:05)
[2020-02-05] MEDS: GABAPENTIN 300 MG CAPSULE PO SCH ×3 (06:39→21:28)
[2020-02-05] MEDS ORDERED: METHADONE HCL 10 MG TABLET ONE (09:07)
[2020-02-05] MEDS ORDERED: METHADONE HCL 40 MG DISPERSABLE TABLET ONE (09:09)
[2020-02-05] MEDS: METHADONE 80 MG, METHADONE 30 MG PO SCH (10:57)
[2020-02-05] MEDS: PRENATAL VITAMINS W/ FOLIC ACID TABLET (FP) PO SCH (10:58)
[2020-02-05] MEDS: SERTRALINE HCL 50 MG TABLET (FP) PO SCH (10:58)
[2020-02-05] MEDS: hydrOXYzine PAMOATE 25 MG CAPSULE (FP) PO PRN ×2 (13:18→21:28)
[2020-02-05] MEDS: THIAMINE HCL 100 MG TABLET (FP) PO SCH (21:28)
[2020-02-05] MEDS: SUVOREXANT 15 MG TABLET PO PRN (21:28)
[2020-02-05] MEDS: MELATONIN 5 MG TABLETS PO SCH (21:29)
[2020-02-06] MEDS: GABAPENTIN 300 MG CAPSULE PO SCH ×3 (06:29→21:38)
[2020-02-06] MEDS ORDERED: METHADONE HCL 10 MG TABLET ONE (08:53)
[2020-02-06] MEDS ORDERED: METHADONE HCL 40 MG DISPERSABLE TABLET ONE (08:54)
[2020-02-06] MEDS: METHADONE 80 MG, METHADONE 30 MG PO SCH (09:33)
[2020-02-06] MEDS: SERTRALINE HCL 50 MG TABLET (FP) PO SCH (09:34)
[2020-02-06] MEDS: PRENATAL VITAMINS W/ FOLIC ACID TABLET (FP) PO SCH (09:34)
[2020-02-06] MEDS: MELATONIN 5 MG TABLETS PO SCH (21:38)
[2020-02-06] MEDS: THIAMINE HCL 100 MG TABLET (FP) PO SCH (21:38)
[2020-02-06] MEDS: SUVOREXANT 15 MG TABLET PO PRN (21:40)
[2020-02-07] MEDS: GABAPENTIN 300 MG CAPSULE PO SCH ×3 (06:15→21:33)
[2020-02-07] MEDS ORDERED: METHADONE HCL 40 MG DISPERSABLE TABLET ONE (09:01)
[2020-02-07] MEDS ORDERED: METHADONE HCL 10 MG TABLET ONE (09:01)
[2020-02-07] MEDS: METHADONE 80 MG, METHADONE 30 MG PO SCH (09:11)
[2020-02-07] MEDS: PRENATAL VITAMINS W/ FOLIC ACID TABLET (FP) PO SCH (09:12)
[2020-02-07] MEDS: SERTRALINE HCL 50 MG TABLET (FP) PO SCH (09:12)
--- NOTE | 2020-02-07 16:42 | PN ---
[facility] Progress Note Note: Psychiatry Attending's note : Called for renewal of suvorexant. Chart reviewed. Medication confirmed. Belsomra 15 mg po hs prn. Renewed.
[2020-02-07] MEDS: SUVOREXANT 5 MG TABLET PO PRN (21:33)
[2020-02-07] MEDS: THIAMINE HCL 100 MG TABLET (FP) PO SCH (21:33)
[2020-02-07] MEDS: MELATONIN 5 MG TABLETS PO SCH (21:33)
[2020-02-08] MEDS: GABAPENTIN 300 MG CAPSULE PO SCH ×3 (06:19→21:44)
[2020-02-08] MEDS ORDERED: METHADONE HCL 10 MG TABLET ONE (09:05)
[2020-02-08] MEDS ORDERED: METHADONE HCL 40 MG DISPERSABLE TABLET ONE (09:06)
[2020-02-08] MEDS: PRENATAL VITAMINS W/ FOLIC ACID TABLET (FP) PO SCH (09:13)
[2020-02-08] MEDS: METHADONE 80 MG, METHADONE 30 MG PO SCH (09:14)
[2020-02-08] MEDS: SERTRALINE HCL 50 MG TABLET (FP) PO SCH (09:15)
[2020-02-08] MEDS: hydrOXYzine PAMOATE 25 MG CAPSULE (FP) PO PRN (21:44)
[2020-02-08] MEDS: THIAMINE HCL 100 MG TABLET (FP) PO SCH (21:44)
[2020-02-08] MEDS: SUVOREXANT 5 MG TABLET PO PRN (21:45)
[2020-02-08] MEDS: MELATONIN 5 MG TABLETS PO SCH (21:46)
[2020-02-09] MEDS: GABAPENTIN 300 MG CAPSULE PO SCH ×3 (06:41→21:34)
[2020-02-09] MEDS ORDERED: METHADONE HCL 10 MG TABLET ONE (08:40)
[2020-02-09] MEDS ORDERED: METHADONE HCL 40 MG DISPERSABLE TABLET ONE (08:41)
[2020-02-09] MEDS: PRENATAL VITAMINS W/ FOLIC ACID TABLET (FP) PO SCH (10:20)
[2020-02-09] MEDS: SERTRALINE HCL 50 MG TABLET (FP) PO SCH (10:20)
[2020-02-09] MEDS: METHADONE 80 MG, METHADONE 30 MG PO SCH (10:20)
[2020-02-09] MEDS: hydrOXYzine PAMOATE 25 MG CAPSULE (FP) PO PRN (21:34)
[2020-02-09] MEDS: THIAMINE HCL 100 MG TABLET (FP) PO SCH (21:35)
[2020-02-09] MEDS: SUVOREXANT 5 MG TABLET PO PRN (21:35)
[2020-02-09] MEDS: MELATONIN 5 MG TABLETS PO SCH (21:35)
[2020-02-10] MEDS: GABAPENTIN 300 MG CAPSULE PO SCH ×3 (06:13→21:27)
[2020-02-10] MEDS ORDERED: METHADONE HCL 10 MG TABLET ONE (08:41)
[2020-02-10] MEDS ORDERED: METHADONE HCL 40 MG DISPERSABLE TABLET ONE (08:43)
[2020-02-10] MEDS: PRENATAL VITAMINS W/ FOLIC ACID TABLET (FP) PO SCH (09:34)
[2020-02-10] MEDS: SERTRALINE HCL 50 MG TABLET (FP) PO SCH (09:34)
[2020-02-10] MEDS: METHADONE 80 MG, METHADONE 30 MG PO SCH (09:34)
--- NOTE | 2020-02-10 14:01 | PN ---
[facility] Progress Note Note: Patient is scheduled for discharge tomorrow. Scripts for 30 days supply of medications(Zoloft 100 mg/day, Gabapentin 300 mg/tid) will be electronically transmitted to Pharmacy, [address] [place] [id number]
[2020-02-10] MEDS: MELATONIN 5 MG TABLETS PO SCH (21:27)
[2020-02-10] MEDS: THIAMINE HCL 100 MG TABLET (FP) PO SCH (21:27)
[2020-02-10] MEDS: hydrOXYzine PAMOATE 25 MG CAPSULE (FP) PO PRN (21:27)
[2020-02-10] MEDS ORDERED: SUVOREXANT 15 MG TABLET PO PRN (22:00)
[2020-02-11] MEDS ORDERED: METHADONE 80 MG, METHADONE 30 MG PO SCH ×2 (06:00→10:00)
[2020-02-11 06:59] VITALS: BP 125/86; PULSE 57; TEMP 97.1
[2020-02-11] MEDS: GABAPENTIN 300 MG CAPSULE PO SCH (07:01)
--- NOTE | 2020-02-11 08:55 | DS ---
[facility] Rehab Discharge Summary - [facility] Rehab Discharge Summary Admission Date: 01/29/20 Discharge Date: 02/11/20 - History Present History: Alcohol dependence, Cannabis dependence, Cocaine dependence, MMTP, Sedative dependence Pertinent Past History: Hep C Hx Withdrawal Seizure Hx Cholecystectomy Anxiety Disorder ADHD Bipolar Disorder - Discharge Physical Exam Vital Signs: Vital Signs Temperature 97.1 F L 02/11/20 06:15 Pulse Rate 57 L 02/11/20 06:15 Respiratory Rate 18 02/11/20 06:15 Blood Pressure 125/86 02/11/20 06:15 O2 Sat by Pulse Oximetry (%) 98 02/11/20 06:15 Alert o x 3 nad, no resp difficulty oob ambulating with steady gait Active FROM, all extremities cardiac:s1 s2,rrr lungs:ctab abdomen:soft,+bs,nt,nd extremities:no edema,skin turgor wnl,color pink, skin intact. Pertinent Admission Physical Exam Findings: Unremarkable on admission from detox - Treatment Discharge Condition: Discharge condition good Hospital Course: Pt is a 40 y/o male admitted to rehab and completed and discharged today. Pt is on [facility] and will be going back to them after discharge from rehab. CD aftercare referral accepted to [facility] - Medication Discharge Medications: Ambulatory Orders Methadone [Dolophine -] 110 mg PO DAILY 01/29/20 Gabapentin [Neurontin -] 300 mg PO TID #90 capsule 02/10/20 Sertraline HCl [Zoloft] 100 mg PO DAILY #30 tablet 02/10/20 - Medication-Assisted Treatment (MAT) Medication-Assisted Treatment (MAT): No - Discharge Instructions Diet, activity, other medical instructions: Diet:Regular Activity: oob ad rach Other medical instructions:follow up with CD aftercare/primary care at [facility] as scheduled. - Diagnosis (1) Nicotine dependence Current Visit: Yes Status: Chronic Qualifiers: Nicotine product type: cigarettes Substance use status: uncomplicated Qualified Code(s): F17.210 - Nicotine dependence, cigarettes, uncomplicated (2) Hepatitis C Current Visit: Yes Status: Chronic Qualifiers: Viral hepatitis chronicity: unspecified (3) Sedative hypnotic or anxiolytic dependence Current Visit: Yes Status: Chronic (4) Cocaine abuse, uncomplicated Current Visit: Yes Status: Chronic (5) Methadone maintenance therapy patient Current Visit: Yes Status: Chronic - Follow-up Referral Minutes to complete discharge: 25 - AMA Did Patient Leave Against Medical Advice: No
[2020-02-11] MEDS ORDERED: METHADONE HCL 10 MG TABLET ONE (09:17)
[2020-02-11] MEDS ORDERED: METHADONE HCL 40 MG DISPERSABLE TABLET ONE (09:17)
[2020-02-11] MEDS: PRENATAL VITAMINS W/ FOLIC ACID TABLET (FP) PO SCH (09:18)
[2020-02-11] MEDS: SERTRALINE HCL 50 MG TABLET (FP) PO SCH (09:18)
== END 2020-02-11 10:00 | disposition home or self-care (01) | DRG 772 ==
LOC: YASAS 12:42 → Y5N 12:44
PROVIDERS: ADMIT Allergy & Immunology; ATTEND Allergy & Immunology
PROC: HZ42ZZZ Group Counseling for Substance Abuse Treatment, Cognitive-Behavioral (ICD-10-PCS; principal; 2020-01-29)
DX: F10.20 Alcohol dependence, uncomplicated (principal); F13.20 Sedative, hypnotic or anxiolytic dependence, uncomplicated; F14.20 Cocaine dependence, uncomplicated; F11.20 Opioid dependence, uncomplicated; F12.20 Cannabis dependence, uncomplicated; F17.210 Nicotine dependence, cigarettes, uncomplicated; F31.9 Bipolar disorder, unspecified; F19.24 Other psychoactive substance dependence with psychoactive substance-induced mood disorder; F19.282 Other psychoactive substance dependence with psychoactive substance-induced sleep disorder; F90.0 Attention-deficit hyperactivity disorder, predominantly inattentive type; F41.9 Anxiety disorder, unspecified; B18.2 Chronic viral hepatitis C; Z86.69 Personal history of other diseases of the nervous system and sense organs; Z90.49 Acquired absence of other specified parts of digestive tract; Z88.8 Allergy status to other drugs, medicaments and biological substances; Z91.018 Allergy to other foods; Z56.0 Unemployment, unspecified

== ENCOUNTER 2020-04-15 12:40 | Inpatient (IN) | payer OTHER ==
[2020-04-15] MEDS ORDERED: MAGNESIUM HYDROX 2400MG/30ML ORAL SUSPENSION 30 ML CUP PO PRN (14:14)
[2020-04-15] MEDS ORDERED: MAGNESIUM CITRATE 300 ML BOTTLE PO PRN (14:14)
[2020-04-15] MEDS ORDERED: MAG HYDROX/AL HYDROX/SIMETH 30 ML UNIT-DOSE CUP PO PRN (14:14)
[2020-04-15] MEDS ORDERED: guaiFENesin 200 MG/10 ML 10 ML UNIT-DOSE CUPS PO PRN (14:14)
[2020-04-15] MEDS ORDERED: LOPERAMIDE HCL 2 MG CAPSULE PO PRN (14:14)
[2020-04-15] MEDS ORDERED: NICOTINE POLACRILEX 4 MG GUM BUC PRN (14:14)
[2020-04-15] MEDS ORDERED: P-EPHED 60MG/TRIPROLIDI 2.5MG TABLET PO PRN (14:14)
[2020-04-15] MEDS ORDERED: ACETAMINOPHEN 325 MG TABLET (FP) PO PRN (14:14)
[2020-04-15] MEDS ORDERED: IBUPROFEN 400 MG TABLET (FP) PO PRN (14:14)
[2020-04-15 15:34] VITALS: BMI 36.7
[2020-04-15 17:00] LABS: HEMATOCRIT 40.4 % (35.4-49); HEMOGLOBIN 13.1 GM/dL (11.7-16.9); MCHC 32.4 g/dl (32.0-35.9); MEAN CELL VOLUME 89.4 fl (80-96); MEAN PLT VOLUME 8.7 fl (7.5-11.1); PLATELET COUNT 220 K/MM3 (134-434); RBC 4.52 M/mm3 (4.00-5.60); RDW 13.8 % (11.9-15.9); WHITE BLOOD COUNT 6.2 K/mm3 (4.0-10.0)
[2020-04-15 17:15] LABS: ALBUMIN 3.9 g/dl (3.4-5.0); CALCIUM 9.7 mg/dL (8.5-10.1)
[2020-04-15 17:16] LABS: BLOOD UREA NITROGEN 20.3 mg/dL (7-18)
[2020-04-15 17:18] LABS: CREATININE 0.9 mg/dL (0.55-1.3)
[2020-04-15 17:20] LABS: BILIRUBIN,TOTAL 0.4 mg/dL (0.2-1); TOT PROT 8.4 g/dl (6.4-8.2)
[2020-04-15] MEDS: hydrOXYzine PAMOATE 25 MG CAPSULE (FP) PO SCH ×2 (18:13→21:25)
[2020-04-15] MEDS: MELATONIN 5 MG TABLETS PO SCH (21:25)
[2020-04-15] MEDS: THIAMINE HCL 100 MG TABLET (FP) PO SCH (22:23)
[2020-04-16] MEDS: hydrOXYzine PAMOATE 25 MG CAPSULE (FP) PO SCH ×5 (06:05→21:18)
[2020-04-16] MEDS: METHADONE HCL 40 MG DISPERSABLE TABLET PO SCH (06:05)
[2020-04-16] MEDS: NICOTINE 21 MG/24 HOURS TOPICAL PATCH TD SCH (10:03)
[2020-04-16] MEDS: PRENATAL VITAMINS W/ FOLIC ACID TABLET (FP) PO SCH (10:03)
[2020-04-16] MEDS ORDERED: PT OWN MED DRAWER 7, Y5N ONE (12:29)
[2020-04-16] MEDS: GABAPENTIN 300 MG CAPSULE PO SCH ×2 (13:57→21:17)
[2020-04-16 15:02] LABS: PH,URINE 7.5 (5.0-8.0); URINE APPEARANCE CLEAR; URINE BILIRUBIN NEGATIVE (NEGATIVE); URINE COLOR YELLOW; URINE GLUCOSE (UA) NEGATIVE (NEGATIVE); URINE KETONE NEGATIVE (NEGATIVE); URINE LEUK ESTERASE NEGATIVE (NEGATIVE); URINE NITRITE NEGATIVE (NEGATIVE); URINE PROTEIN NEGATIVE (NEGATIVE)
[2020-04-16] MEDS: THIAMINE HCL 100 MG TABLET (FP) PO SCH (21:17)
[2020-04-16] MEDS: MELATONIN 5 MG TABLETS PO SCH (21:17)
[2020-04-16] MEDS: SENNOSIDES 8.6MG TABLET (FP) PO SCH (21:18)
[2020-04-16] MEDS: MIRTAZAPINE 15 MG TABLET (FP) PO SCH (21:18)
[2020-04-17] MEDS: GABAPENTIN 300 MG CAPSULE PO SCH ×3 (06:54→21:17)
[2020-04-17] MEDS: METHADONE HCL 40 MG DISPERSABLE TABLET PO SCH (06:54)
[2020-04-17] MEDS: hydrOXYzine PAMOATE 25 MG CAPSULE (FP) PO SCH ×5 (06:54→21:17)
[2020-04-17] MEDS: NICOTINE 21 MG/24 HOURS TOPICAL PATCH TD SCH (09:45)
[2020-04-17] MEDS: PRENATAL VITAMINS W/ FOLIC ACID TABLET (FP) PO SCH (09:45)
[2020-04-17] MEDS: SENNOSIDES 8.6MG TABLET (FP) PO SCH ×2 (09:45→21:17)
[2020-04-17] MEDS: THIAMINE HCL 100 MG TABLET (FP) PO SCH (21:17)
[2020-04-17] MEDS: MIRTAZAPINE 15 MG TABLET (FP) PO SCH (21:17)
[2020-04-17] MEDS: MELATONIN 5 MG TABLETS PO SCH (21:17)
[2020-04-18] MEDS: hydrOXYzine PAMOATE 25 MG CAPSULE (FP) PO SCH ×5 (06:33→21:14)
[2020-04-18] MEDS: GABAPENTIN 300 MG CAPSULE PO SCH ×3 (06:33→21:13)
[2020-04-18] MEDS: METHADONE HCL 40 MG DISPERSABLE TABLET PO SCH (06:33)
[2020-04-18] MEDS: PRENATAL VITAMINS W/ FOLIC ACID TABLET (FP) PO SCH (09:44)
[2020-04-18] MEDS: SENNOSIDES 8.6MG TABLET (FP) PO SCH ×2 (09:44→21:13)
[2020-04-18] MEDS: NICOTINE 21 MG/24 HOURS TOPICAL PATCH TD SCH (09:45)
[2020-04-18] MEDS: MIRTAZAPINE 15 MG TABLET (FP) PO SCH (21:13)
[2020-04-18] MEDS: MELATONIN 5 MG TABLETS PO SCH (21:13)
[2020-04-18] MEDS: THIAMINE HCL 100 MG TABLET (FP) PO SCH (21:13)
[2020-04-19] MEDS: GABAPENTIN 300 MG CAPSULE PO SCH ×3 (06:26→21:27)
[2020-04-19] MEDS: METHADONE HCL 40 MG DISPERSABLE TABLET PO SCH (06:26)
[2020-04-19] MEDS: hydrOXYzine PAMOATE 25 MG CAPSULE (FP) PO SCH ×5 (06:26→21:26)
[2020-04-19] MEDS: PRENATAL VITAMINS W/ FOLIC ACID TABLET (FP) PO SCH (09:32)
[2020-04-19] MEDS: SENNOSIDES 8.6MG TABLET (FP) PO SCH ×2 (09:32→21:26)
[2020-04-19] MEDS: NICOTINE 21 MG/24 HOURS TOPICAL PATCH TD SCH (09:34)
[2020-04-19] MEDS: MELATONIN 5 MG TABLETS PO SCH (21:27)
[2020-04-19] MEDS: MIRTAZAPINE 15 MG TABLET (FP) PO SCH (21:27)
[2020-04-19] MEDS: THIAMINE HCL 100 MG TABLET (FP) PO SCH (21:28)
[2020-04-20] MEDS: METHADONE HCL 40 MG DISPERSABLE TABLET PO SCH (06:26)
[2020-04-20] MEDS: GABAPENTIN 300 MG CAPSULE PO SCH ×3 (06:26→21:21)
[2020-04-20] MEDS: hydrOXYzine PAMOATE 25 MG CAPSULE (FP) PO SCH ×5 (06:27→21:21)
[2020-04-20] MEDS: PRENATAL VITAMINS W/ FOLIC ACID TABLET (FP) PO SCH (09:57)
[2020-04-20] MEDS: SENNOSIDES 8.6MG TABLET (FP) PO SCH ×2 (09:57→21:21)
[2020-04-20] MEDS: NICOTINE 21 MG/24 HOURS TOPICAL PATCH TD SCH (09:58)
[2020-04-20] MEDS ORDERED: ONDANSETRON *ODT* 4 MG TABLET SL PRN (14:46)
[2020-04-20] MEDS: MELATONIN 5 MG TABLETS PO SCH (21:20)
[2020-04-20] MEDS: MIRTAZAPINE 15 MG TABLET (FP) PO SCH (21:21)
[2020-04-20] MEDS: THIAMINE HCL 100 MG TABLET (FP) PO SCH (21:21)
[2020-04-21] MEDS: METHADONE HCL 40 MG DISPERSABLE TABLET PO SCH (06:15)
[2020-04-21] MEDS: GABAPENTIN 300 MG CAPSULE PO SCH ×3 (06:15→21:29)
[2020-04-21] MEDS: hydrOXYzine PAMOATE 25 MG CAPSULE (FP) PO SCH ×5 (06:15→21:29)
[2020-04-21] MEDS ORDERED: PT OWN MED DRAWER 7, Y5N ONE ×2 (08:57→18:53)
[2020-04-21] MEDS: SENNOSIDES 8.6MG TABLET (FP) PO SCH ×2 (09:36→21:29)
[2020-04-21] MEDS: PRENATAL VITAMINS W/ FOLIC ACID TABLET (FP) PO SCH (09:37)
[2020-04-21] MEDS: NICOTINE 21 MG/24 HOURS TOPICAL PATCH TD SCH (09:37)
[2020-04-21] MEDS: MELATONIN 5 MG TABLETS PO SCH (21:28)
[2020-04-21] MEDS: THIAMINE HCL 100 MG TABLET (FP) PO SCH (21:28)
[2020-04-21] MEDS: MIRTAZAPINE 15 MG TABLET (FP) PO SCH (21:29)
[2020-04-22] MEDS: METHADONE HCL 40 MG DISPERSABLE TABLET PO SCH (06:41)
[2020-04-22] MEDS: hydrOXYzine PAMOATE 25 MG CAPSULE (FP) PO SCH ×5 (06:41→21:18)
[2020-04-22] MEDS: GABAPENTIN 300 MG CAPSULE PO SCH ×3 (06:41→21:18)
[2020-04-22] MEDS: PRENATAL VITAMINS W/ FOLIC ACID TABLET (FP) PO SCH (09:34)
[2020-04-22] MEDS: SENNOSIDES 8.6MG TABLET (FP) PO SCH ×2 (09:34→21:18)
[2020-04-22] MEDS: NICOTINE 21 MG/24 HOURS TOPICAL PATCH TD SCH (09:34)
[2020-04-22] MEDS: THIAMINE HCL 100 MG TABLET (FP) PO SCH (21:17)
[2020-04-22] MEDS: MELATONIN 5 MG TABLETS PO SCH (21:17)
[2020-04-22] MEDS: MIRTAZAPINE 15 MG TABLET (FP) PO SCH (21:18)
[2020-04-23] MEDS: GABAPENTIN 300 MG CAPSULE PO SCH ×3 (06:31→21:21)
[2020-04-23] MEDS: METHADONE HCL 40 MG DISPERSABLE TABLET PO SCH (06:31)
[2020-04-23] MEDS: hydrOXYzine PAMOATE 25 MG CAPSULE (FP) PO SCH ×5 (06:31→21:21)
[2020-04-23] MEDS ORDERED: PT OWN MED DRAWER 7, Y5N ONE ×2 (09:04→18:39)
[2020-04-23] MEDS: PRENATAL VITAMINS W/ FOLIC ACID TABLET (FP) PO SCH (09:49)
[2020-04-23] MEDS: SENNOSIDES 8.6MG TABLET (FP) PO SCH ×2 (09:50→21:22)
[2020-04-23] MEDS: NICOTINE 21 MG/24 HOURS TOPICAL PATCH TD SCH (09:51)
[2020-04-23] MEDS: MIRTAZAPINE 15 MG TABLET (FP) PO SCH (21:21)
[2020-04-23] MEDS: MELATONIN 5 MG TABLETS PO SCH (21:21)
[2020-04-23] MEDS: THIAMINE HCL 100 MG TABLET (FP) PO SCH (21:22)
[2020-04-23] MEDS: CARBAMIDE PEROXIDE 6.5% OTIC 15 ML BOTTLE AU SCH (21:22)
[2020-04-24] MEDS: hydrOXYzine PAMOATE 25 MG CAPSULE (FP) PO SCH ×5 (06:19→21:25)
[2020-04-24] MEDS: GABAPENTIN 300 MG CAPSULE PO SCH ×3 (06:19→21:25)
[2020-04-24] MEDS: METHADONE HCL 40 MG DISPERSABLE TABLET PO SCH (06:19)
[2020-04-24] MEDS ORDERED: PT OWN MED DRAWER 7, Y5N ONE ×3 (08:41→19:36)
[2020-04-24] MEDS: SENNOSIDES 8.6MG TABLET (FP) PO SCH ×2 (09:33→21:26)
[2020-04-24] MEDS: PRENATAL VITAMINS W/ FOLIC ACID TABLET (FP) PO SCH (09:33)
[2020-04-24] MEDS: NICOTINE 21 MG/24 HOURS TOPICAL PATCH TD SCH (10:09)
[2020-04-24] MEDS: CARBAMIDE PEROXIDE 6.5% OTIC 15 ML BOTTLE AU SCH ×2 (10:12→21:28)
[2020-04-24] MEDS: MELATONIN 5 MG TABLETS PO SCH (21:25)
[2020-04-24] MEDS: THIAMINE HCL 100 MG TABLET (FP) PO SCH (21:25)
[2020-04-24] MEDS: MIRTAZAPINE 15 MG TABLET (FP) PO SCH (21:26)
[2020-04-25] MEDS: hydrOXYzine PAMOATE 25 MG CAPSULE (FP) PO SCH ×5 (06:17→21:36)
[2020-04-25] MEDS: GABAPENTIN 300 MG CAPSULE PO SCH ×3 (06:17→21:36)
[2020-04-25] MEDS: METHADONE HCL 40 MG DISPERSABLE TABLET PO SCH (06:18)
[2020-04-25] MEDS: PRENATAL VITAMINS W/ FOLIC ACID TABLET (FP) PO SCH (09:49)
[2020-04-25] MEDS: CARBAMIDE PEROXIDE 6.5% OTIC 15 ML BOTTLE AU SCH ×2 (09:49→21:37)
[2020-04-25] MEDS: SENNOSIDES 8.6MG TABLET (FP) PO SCH ×2 (09:49→21:36)
[2020-04-25] MEDS: NICOTINE 21 MG/24 HOURS TOPICAL PATCH TD SCH (09:49)
[2020-04-25] MEDS ORDERED: PT OWN MED DRAWER 7, Y5N ONE (19:04)
[2020-04-25] MEDS: MIRTAZAPINE 15 MG TABLET (FP) PO SCH (21:36)
[2020-04-25] MEDS: MELATONIN 5 MG TABLETS PO SCH (21:37)
[2020-04-25] MEDS: THIAMINE HCL 100 MG TABLET (FP) PO SCH (21:37)
[2020-04-26] MEDS: hydrOXYzine PAMOATE 25 MG CAPSULE (FP) PO SCH ×5 (06:34→21:25)
[2020-04-26] MEDS: METHADONE HCL 40 MG DISPERSABLE TABLET PO SCH (06:34)
[2020-04-26] MEDS: GABAPENTIN 300 MG CAPSULE PO SCH ×3 (06:34→21:24)
[2020-04-26] MEDS: PRENATAL VITAMINS W/ FOLIC ACID TABLET (FP) PO SCH (09:33)
[2020-04-26] MEDS: SENNOSIDES 8.6MG TABLET (FP) PO SCH ×2 (09:34→21:24)
[2020-04-26] MEDS: CARBAMIDE PEROXIDE 6.5% OTIC 15 ML BOTTLE AU SCH ×2 (09:35→21:25)
[2020-04-26] MEDS: NICOTINE 21 MG/24 HOURS TOPICAL PATCH TD SCH (09:35)
[2020-04-26] MEDS: MIRTAZAPINE 15 MG TABLET (FP) PO SCH (21:24)
[2020-04-26] MEDS: MELATONIN 5 MG TABLETS PO SCH (21:25)
[2020-04-26] MEDS: THIAMINE HCL 100 MG TABLET (FP) PO SCH (21:25)
[2020-04-27] MEDS: hydrOXYzine PAMOATE 25 MG CAPSULE (FP) PO SCH ×5 (06:28→21:18)
[2020-04-27] MEDS: GABAPENTIN 300 MG CAPSULE PO SCH ×3 (06:28→21:18)
[2020-04-27] MEDS: METHADONE HCL 40 MG DISPERSABLE TABLET PO SCH (06:29)
[2020-04-27] MEDS: NICOTINE 21 MG/24 HOURS TOPICAL PATCH TD SCH (09:40)
[2020-04-27] MEDS: CARBAMIDE PEROXIDE 6.5% OTIC 15 ML BOTTLE AU SCH ×2 (09:40→21:19)
[2020-04-27] MEDS: PRENATAL VITAMINS W/ FOLIC ACID TABLET (FP) PO SCH (09:40)
[2020-04-27] MEDS: SENNOSIDES 8.6MG TABLET (FP) PO SCH ×2 (09:40→21:19)
[2020-04-27] MEDS ORDERED: PT OWN MED DRAWER 7, Y5N ONE (18:36)
[2020-04-27] MEDS: MELATONIN 5 MG TABLETS PO SCH (21:18)
[2020-04-27] MEDS: THIAMINE HCL 100 MG TABLET (FP) PO SCH (21:18)
[2020-04-27] MEDS: MIRTAZAPINE 15 MG TABLET (FP) PO SCH (21:19)
[2020-04-28] MEDS: METHADONE HCL 40 MG DISPERSABLE TABLET PO SCH (06:29)
[2020-04-28] MEDS: GABAPENTIN 300 MG CAPSULE PO SCH ×3 (06:29→21:19)
[2020-04-28] MEDS: hydrOXYzine PAMOATE 25 MG CAPSULE (FP) PO SCH ×5 (06:29→21:19)
[2020-04-28] MEDS ORDERED: PT OWN MED DRAWER 7, Y5N ONE ×2 (08:45→19:24)
[2020-04-28] MEDS: PRENATAL VITAMINS W/ FOLIC ACID TABLET (FP) PO SCH (09:51)
[2020-04-28] MEDS: NICOTINE 21 MG/24 HOURS TOPICAL PATCH TD SCH (09:51)
[2020-04-28] MEDS: SENNOSIDES 8.6MG TABLET (FP) PO SCH ×2 (09:51→21:19)
[2020-04-28] MEDS: CARBAMIDE PEROXIDE 6.5% OTIC 15 ML BOTTLE AU SCH ×2 (09:52→21:21)
[2020-04-28] MEDS: MIRTAZAPINE 15 MG TABLET (FP) PO SCH (21:19)
[2020-04-28] MEDS: THIAMINE HCL 100 MG TABLET (FP) PO SCH (21:20)
[2020-04-28] MEDS: MELATONIN 5 MG TABLETS PO SCH (21:20)
[2020-04-29] MEDS: METHADONE HCL 40 MG DISPERSABLE TABLET PO SCH (06:18)
[2020-04-29] MEDS: GABAPENTIN 300 MG CAPSULE PO SCH ×3 (06:18→21:30)
[2020-04-29] MEDS: hydrOXYzine PAMOATE 25 MG CAPSULE (FP) PO SCH ×5 (06:18→21:31)
[2020-04-29] MEDS ORDERED: PT OWN MED DRAWER 7, Y5N ONE ×2 (08:33→21:32)
[2020-04-29] MEDS: SENNOSIDES 8.6MG TABLET (FP) PO SCH ×2 (09:37→21:30)
[2020-04-29] MEDS: CARBAMIDE PEROXIDE 6.5% OTIC 15 ML BOTTLE AU SCH ×2 (09:38→21:34)
[2020-04-29] MEDS: PRENATAL VITAMINS W/ FOLIC ACID TABLET (FP) PO SCH (09:38)
[2020-04-29] MEDS: NICOTINE 21 MG/24 HOURS TOPICAL PATCH TD SCH (09:38)
[2020-04-29] MEDS: MELATONIN 5 MG TABLETS PO SCH (21:31)
[2020-04-29] MEDS: THIAMINE HCL 100 MG TABLET (FP) PO SCH (21:31)
[2020-04-29] MEDS: MIRTAZAPINE 15 MG TABLET (FP) PO SCH (21:31)
[2020-04-30] MEDS: hydrOXYzine PAMOATE 25 MG CAPSULE (FP) PO SCH ×5 (06:31→21:11)
[2020-04-30] MEDS: GABAPENTIN 300 MG CAPSULE PO SCH ×3 (06:31→21:11)
[2020-04-30] MEDS: METHADONE HCL 40 MG DISPERSABLE TABLET PO SCH (06:31)
[2020-04-30] MEDS ORDERED: PT OWN MED DRAWER 7, Y5N ONE (08:42)
[2020-04-30] MEDS: PRENATAL VITAMINS W/ FOLIC ACID TABLET (FP) PO SCH (10:14)
[2020-04-30] MEDS: SENNOSIDES 8.6MG TABLET (FP) PO SCH ×2 (10:14→21:11)
[2020-04-30] MEDS: CARBAMIDE PEROXIDE 6.5% OTIC 15 ML BOTTLE AU SCH (10:15)
[2020-04-30] MEDS: NICOTINE 21 MG/24 HOURS TOPICAL PATCH TD SCH (10:17)
[2020-04-30] MEDS: MELATONIN 5 MG TABLETS PO SCH (21:11)
[2020-04-30] MEDS: MIRTAZAPINE 15 MG TABLET (FP) PO SCH (21:11)
[2020-04-30] MEDS: THIAMINE HCL 100 MG TABLET (FP) PO SCH (21:12)
[2020-05-01] MEDS: METHADONE HCL 40 MG DISPERSABLE TABLET PO SCH (06:38)
[2020-05-01] MEDS: GABAPENTIN 300 MG CAPSULE PO SCH ×3 (06:38→21:10)
[2020-05-01] MEDS: hydrOXYzine PAMOATE 25 MG CAPSULE (FP) PO SCH ×5 (06:38→21:09)
[2020-05-01] MEDS: NICOTINE 21 MG/24 HOURS TOPICAL PATCH TD SCH (09:40)
[2020-05-01] MEDS: SENNOSIDES 8.6MG TABLET (FP) PO SCH ×2 (09:40→21:10)
[2020-05-01] MEDS: PRENATAL VITAMINS W/ FOLIC ACID TABLET (FP) PO SCH (09:40)
[2020-05-01] MEDS: MELATONIN 5 MG TABLETS PO SCH (21:09)
[2020-05-01] MEDS: MIRTAZAPINE 15 MG TABLET (FP) PO SCH (21:09)
[2020-05-01] MEDS: THIAMINE HCL 100 MG TABLET (FP) PO SCH (21:10)
[2020-05-02] MEDS: METHADONE HCL 40 MG DISPERSABLE TABLET PO SCH (06:46)
[2020-05-02] MEDS: hydrOXYzine PAMOATE 25 MG CAPSULE (FP) PO SCH ×5 (06:46→21:18)
[2020-05-02] MEDS: GABAPENTIN 300 MG CAPSULE PO SCH ×3 (06:46→21:18)
[2020-05-02] MEDS: PRENATAL VITAMINS W/ FOLIC ACID TABLET (FP) PO SCH (09:19)
[2020-05-02] MEDS: SENNOSIDES 8.6MG TABLET (FP) PO SCH ×2 (09:19→21:19)
[2020-05-02] MEDS: NICOTINE 21 MG/24 HOURS TOPICAL PATCH TD SCH (09:20)
[2020-05-02] MEDS: THIAMINE HCL 100 MG TABLET (FP) PO SCH (21:18)
[2020-05-02] MEDS: MIRTAZAPINE 15 MG TABLET (FP) PO SCH (21:18)
[2020-05-02] MEDS: MELATONIN 5 MG TABLETS PO SCH (21:18)
[2020-05-03] MEDS: hydrOXYzine PAMOATE 25 MG CAPSULE (FP) PO SCH ×5 (06:29→21:37)
[2020-05-03] MEDS: GABAPENTIN 300 MG CAPSULE PO SCH ×3 (06:29→21:37)
[2020-05-03] MEDS: METHADONE HCL 40 MG DISPERSABLE TABLET PO SCH (06:29)
[2020-05-03] MEDS: PRENATAL VITAMINS W/ FOLIC ACID TABLET (FP) PO SCH (09:55)
[2020-05-03] MEDS: SENNOSIDES 8.6MG TABLET (FP) PO SCH ×2 (09:55→21:38)
[2020-05-03] MEDS: NICOTINE 21 MG/24 HOURS TOPICAL PATCH TD SCH (09:56)
[2020-05-03] MEDS ORDERED: PT OWN MED DRAWER 7, Y5N ONE (20:18)
[2020-05-03] MEDS: THIAMINE HCL 100 MG TABLET (FP) PO SCH (21:37)
[2020-05-03] MEDS: MELATONIN 5 MG TABLETS PO SCH (21:37)
[2020-05-03] MEDS: MIRTAZAPINE 15 MG TABLET (FP) PO SCH (21:37)
[2020-05-04] MEDS: METHADONE HCL 40 MG DISPERSABLE TABLET PO SCH (06:16)
[2020-05-04] MEDS: hydrOXYzine PAMOATE 25 MG CAPSULE (FP) PO SCH ×2 (06:17→09:17)
[2020-05-04] MEDS: GABAPENTIN 300 MG CAPSULE PO SCH (06:17)
[2020-05-04 06:58] VITALS: BP 137/96; PULSE 80; TEMP 97
[2020-05-04] MEDS: PRENATAL VITAMINS W/ FOLIC ACID TABLET (FP) PO SCH (09:17)
[2020-05-04] MEDS: NICOTINE 21 MG/24 HOURS TOPICAL PATCH TD SCH (09:18)
[2020-05-04] MEDS: SENNOSIDES 8.6MG TABLET (FP) PO SCH (09:18)
== END 2020-05-04 09:37 | disposition home or self-care (01) | DRG 772 ==
LOC: YASAS 12:40 → Y3W 15:44
PROVIDERS: ADMIT Allergy & Immunology; ATTEND Allergy & Immunology
PROC: HZ42ZZZ Group Counseling for Substance Abuse Treatment, Cognitive-Behavioral (ICD-10-PCS; principal; 2020-04-15)
DX: F10.20 Alcohol dependence, uncomplicated (principal); F11.20 Opioid dependence, uncomplicated; F14.20 Cocaine dependence, uncomplicated; F13.20 Sedative, hypnotic or anxiolytic dependence, uncomplicated; F17.210 Nicotine dependence, cigarettes, uncomplicated; F31.9 Bipolar disorder, unspecified; F43.10 Post-traumatic stress disorder, unspecified; F90.9 Attention-deficit hyperactivity disorder, unspecified type; F41.0 Panic disorder [episodic paroxysmal anxiety]; B18.2 Chronic viral hepatitis C; Z86.69 Personal history of other diseases of the nervous system and sense organs; Z86.718 Personal history of other venous thrombosis and embolism; Z90.49 Acquired absence of other specified parts of digestive tract; Z88.8 Allergy status to other drugs, medicaments and biological substances; Z91.013 Allergy to seafood; Z56.0 Unemployment, unspecified; Z59.0 Homelessness
CPT/HCPCS: 36415; 80053; 81003; 85027; 86780; 86803; 93005; 93010; Q0162

== ENCOUNTER 2023-10-04 13:00 | Inpatient (IN) | payer OTHER ==
[2023-10-04 14:33] VITALS: BMI 25.2
[2023-10-04] MEDS ORDERED: BENZOCAINE/MENTHOL (CHLORASEPTIC ) LOZENGE MM PRN (17:23)
[2023-10-04] MEDS ORDERED: MAG HYDROX/AL HYDROX/SIMETH 30 ML UNIT-DOSE CUP PO PRN (17:23)
[2023-10-04] MEDS ORDERED: guaiFENesin 600 MG TABLET.ER (FP) PO PRN (17:23)
[2023-10-04] MEDS ORDERED: IBUPROFEN 600 MG TABLET (FP) PO PRN (17:23)
[2023-10-04] MEDS ORDERED: ACETAMINOPHEN 325 MG TABLET (FP) PO PRN (17:23)
[2023-10-04] MEDS ORDERED: DICYCLOMINE HCL 10 MG CAPSULE PO PRN (17:23)
[2023-10-04] MEDS ORDERED: NALOXONE HCL 0.4 MG/ML VIAL IM PRN (17:23)
[2023-10-04] MEDS ORDERED: IBUPROFEN 400 MG TABLET (FP) PO PRN (17:23)
[2023-10-04] MEDS ORDERED: LOPERAMIDE HCL 2 MG CAPSULE PO PRN (17:23)
[2023-10-04] MEDS ORDERED: POLYETHYLENE GLYCOL (HEALTHYLAX) 3350 17 GM PACKET PO PRN (17:23)
[2023-10-04] MEDS ORDERED: MAGNESIUM HYDROX 2400MG/30ML ORAL SUSPENSION 30 ML CUP PO PRN (17:23)
[2023-10-04] MEDS ORDERED: BENZONATATE 200 MG CAPSULE PO PRN (17:23)
[2023-10-04] MEDS ORDERED: NALOXONE HCL (KLOXXADO) 8 MG SPRAY NS PRN (17:23)
[2023-10-04] MEDS ORDERED: BISMUTH SUBSALICYLATE 524 MG/30 ML PO PRN (17:23)
[2023-10-04] MEDS ORDERED: diazePAM 5 MG TABLET ONE (17:40)
[2023-10-04] MEDS: diazePAM 5 MG TABLET PO SCH (17:41)
[2023-10-04] MEDS: MELATONIN 5 MG TABLETS PO SCH (22:45)
[2023-10-04] MEDS: levETIRAcetam 500 MG TABLET (FP) PO SCH (22:46)
[2023-10-04] MEDS: THIAMINE HCL 100 MG TABLET (FP) PO SCH (22:47)
[2023-10-05] MEDS: diazePAM 5 MG TABLET PO PRN (01:05)
[2023-10-05] MEDS: P-EPHED 60MG/TRIPROLIDI 2.5MG TABLET PO PRN (01:06)
[2023-10-05] MEDS: METHOCARBAMOL 500 MG TABLET PO PRN (05:36)
[2023-10-05] MEDS: ONDANSETRON *ODT* 4 MG TABLET SL PRN (07:25)
[2023-10-05] MEDS ORDERED: methaDONE HCL 40 MG DISPERSABLE TABLET PO SCH (08:45)
[2023-10-05] MEDS: methaDONE 40 MG, methaDONE 30 MG PO ONE (09:02)
[2023-10-05] MEDS: PRENATAL VITAMINS W/ FOLIC ACID TABLET (FP) PO SCH (10:06)
[2023-10-05 14:45] LABS: HEMATOCRIT 38.7 % (35.4-49); HEMOGLOBIN 12.9 GM/dL (11.7-16.9); MCH 28.9 pg (25.7-33.7); MCHC 33.2 g/dl (32.0-35.9); MEAN CELL VOLUME 87.1 fl (80-96); MEAN PLT VOLUME 8.7 fl (7.5-11.1); PLATELET COUNT 162 10^3/uL (134-434); RBC 4.45 M/mm3 (4.00-5.60); RDW 14.1 % (11.9-15.9); WHITE BLOOD COUNT 4.7 K/mm3 (4.0-10.0)
[2023-10-05 14:48] LABS: POTASSIUM 4.5 mmol/L (3.5-5.1)
[2023-10-05 14:53] LABS: CALCIUM 9.5 mg/dL (8.5-10.1)
[2023-10-05 14:54] LABS: ALBUMIN 3.6 g/dl (3.4-5.0); BLOOD UREA NITROGEN 12.7 mg/dL (7-18)
[2023-10-05 14:57] LABS: CREATININE 0.9 mg/dL (0.55-1.3)
[2023-10-05 14:58] LABS: BILIRUBIN,TOTAL 0.5 mg/dL (0.2-1); TOT PROT 7.7 g/dl (6.4-8.2)
[2023-10-06] MEDS: diazePAM 5 MG TABLET PO SCH (05:40)
[2023-10-06] MEDS: methaDONE 40 MG, methaDONE 30 MG PO SCH (05:40)
[2023-10-06] MEDS: GABAPENTIN 300 MG CAPSULE PO SCH (13:26)
[2023-10-07] MEDS: diazePAM 5 MG TABLET PO SCH (05:32)
[2023-10-07 20:48] VITALS: RESP 18
[2023-10-08] MEDS: diazePAM 5 MG TABLET PO ONE (05:57)
[2023-10-08 06:18] VITALS: BP 114/83; PULSE 76; TEMP 98.5
== END 2023-10-08 09:08 | disposition home or self-care (01) | DRG 773 ==
LOC: YASAS 13:00 → Y3N 17:29
PROVIDERS: ADMIT Allergy & Immunology; ATTEND Surgery
PROC: HZ2ZZZZ Detoxification Services for Substance Abuse Treatment (ICD-10-PCS; principal; 2023-10-04)
DX: F10.230 Alcohol dependence with withdrawal, uncomplicated (principal); F13.230 Sedative, hypnotic or anxiolytic dependence with withdrawal, uncomplicated; F11.20 Opioid dependence, uncomplicated; F14.20 Cocaine dependence, uncomplicated; F12.20 Cannabis dependence, uncomplicated; F43.10 Post-traumatic stress disorder, unspecified; F17.210 Nicotine dependence, cigarettes, uncomplicated; G40.909 Epilepsy, unspecified, not intractable, without status epilepticus; B18.2 Chronic viral hepatitis C; Z28.310 Unvaccinated for COVID-19; Z28.9 Immunization not carried out for unspecified reason; Z86.718 Personal history of other venous thrombosis and embolism; Z88.8 Allergy status to other drugs, medicaments and biological substances
CPT/HCPCS: 36415; 80053; 85027; 86780; Q0162

== ENCOUNTER 2024-03-09 21:23 | Inpatient (IN) | payer OTHER ==
[2024-03-09 22:45] VITALS: BMI 24.6
[2024-03-10] MEDS ORDERED: MAGNESIUM HYDROX 2400MG/30ML ORAL SUSPENSION 30 ML CUP PO PRN (00:18)
[2024-03-10] MEDS ORDERED: LOPERAMIDE HCL 2 MG CAPSULE PO PRN (00:18)
[2024-03-10] MEDS ORDERED: BENZONATATE 200 MG CAPSULE PO PRN (00:18)
[2024-03-10] MEDS ORDERED: NICOTINE POLACRILEX 2 MG GUM BUC PRN (00:18)
[2024-03-10] MEDS ORDERED: NALOXONE HCL 0.4 MG/ML VIAL IM PRN (00:18)
[2024-03-10] MEDS ORDERED: MAG HYDROX/AL HYDROX/SIMETH 30 ML UNIT-DOSE CUP PO PRN (00:18)
[2024-03-10] MEDS ORDERED: DICYCLOMINE HCL 10 MG CAPSULE PO PRN (00:18)
[2024-03-10] MEDS ORDERED: guaiFENesin 600 MG TABLET.ER (FP) PO PRN (00:18)
[2024-03-10] MEDS ORDERED: BISMUTH SUBSALICYLATE 524 MG/30 ML PO PRN (00:18)
[2024-03-10] MEDS ORDERED: IBUPROFEN 400 MG TABLET (FP) PO PRN (00:18)
[2024-03-10] MEDS ORDERED: ACETAMINOPHEN 325 MG TABLET (FP) PO PRN (00:18)
[2024-03-10] MEDS ORDERED: POLYETHYLENE GLYCOL (HEALTHYLAX) 3350 17 GM PACKET PO PRN (00:18)
[2024-03-10] MEDS ORDERED: BENZOCAINE/MENTHOL (CHLORASEPTIC ) LOZENGE MM PRN (00:18)
[2024-03-10] MEDS ORDERED: ONDANSETRON *ODT* 4 MG TABLET SL PRN (00:18)
[2024-03-10] MEDS ORDERED: NALOXONE (NARCAN) HCL 4 MG/0.1 ML SPRAY NS PRN (00:18)
[2024-03-10] MEDS ORDERED: IBUPROFEN 600 MG TABLET (FP) PO PRN (00:18)
[2024-03-10] MEDS: METHOCARBAMOL 500 MG TABLET PO PRN (02:45)
[2024-03-10] MEDS: hydrOXYzine PAMOATE 25 MG CAPSULE (FP) PO PRN (02:45)
[2024-03-10] MEDS: diazePAM 5 MG TABLET PO SCH (05:59)
[2024-03-10] MEDS: NICOTINE 14 MG/24 HOURS TOPICAL PATCH TD SCH (10:45)
[2024-03-10] MEDS: PRENATAL VITAMINS W/ FOLIC ACID TABLET (FP) PO SCH (10:45)
[2024-03-10] MEDS: methaDONE HCL 40 MG DISPERSABLE TABLET PO SCH (11:37)
[2024-03-10] MEDS: PATIENT'S OWN MEDICATION (NON-FORMULARY) (Glecaprevir/Pibrentasvir [Mavyret 100-40 Mg Tabl PO SCH (11:39)
[2024-03-10] MEDS: diazePAM 5 MG TABLET PO PRN (14:17)
[2024-03-10] MEDS: THIAMINE 100 MG TABLET PO SCH (22:25)
[2024-03-10] MEDS: SUVOREXANT 10 MG TABLET PO PRN (22:26)
[2024-03-11] MEDS: MELATONIN 5 MG TABLETS PO SCH (00:01)
[2024-03-11] MEDS: diazePAM 5 MG TABLET PO SCH (05:36)
[2024-03-12] MEDS: diazePAM 5 MG TABLET PO SCH (05:43)
[2024-03-13] MEDS: diazePAM 5 MG TABLET PO ONE (06:09)
[2024-03-13 09:15] VITALS: BP 119/67; PULSE 73; RESP 17; TEMP 98.2
== END 2024-03-13 09:29 | disposition home or self-care (01) | DRG 773 ==
LOC: YASAS 21:23 → Y6N 03-10 02:16
PROVIDERS: ADMIT Allergy & Immunology; ATTEND Surgery
PROC: HZ2ZZZZ Detoxification Services for Substance Abuse Treatment (ICD-10-PCS; principal; 2024-03-10)
DX: F10.230 Alcohol dependence with withdrawal, uncomplicated (principal); F13.230 Sedative, hypnotic or anxiolytic dependence with withdrawal, uncomplicated; F11.20 Opioid dependence, uncomplicated; F14.20 Cocaine dependence, uncomplicated; F17.210 Nicotine dependence, cigarettes, uncomplicated; F19.282 Other psychoactive substance dependence with psychoactive substance-induced sleep disorder; F43.10 Post-traumatic stress disorder, unspecified; F90.9 Attention-deficit hyperactivity disorder, unspecified type; B18.2 Chronic viral hepatitis C; Z86.19 Personal history of other infectious and parasitic diseases
CPT/HCPCS: 36415; 80305; 80307; 93005; 93010

== ENCOUNTER 2024-04-11 13:50 | Inpatient (IN) | payer OTHER ==
[2024-04-11 15:02] VITALS: BMI 27.3
[2024-04-11] MEDS ORDERED: ONDANSETRON *ODT* 4 MG TABLET SL PRN (16:07)
[2024-04-11] MEDS ORDERED: IBUPROFEN 600 MG TABLET (FP) PO PRN (16:07)
[2024-04-11] MEDS ORDERED: ACETAMINOPHEN 325 MG TABLET (FP) PO PRN (16:07)
[2024-04-11] MEDS ORDERED: NALOXONE (NYS OPIOID OVERDOSE PROGRAM) 4 MG/0.1 ML SPRAY NS PRN (16:07)
[2024-04-11] MEDS ORDERED: MAGNESIUM HYDROX 2400MG/30ML ORAL SUSPENSION 30 ML CUP PO PRN (16:07)
[2024-04-11] MEDS ORDERED: BENZONATATE 200 MG CAPSULE PO PRN (16:07)
[2024-04-11] MEDS ORDERED: MAG HYDROX/AL HYDROX/SIMETH 30 ML UNIT-DOSE CUP PO PRN (16:07)
[2024-04-11] MEDS ORDERED: BISMUTH SUBSALICYLATE 524 MG/30 ML PO PRN (16:07)
[2024-04-11] MEDS ORDERED: LOPERAMIDE HCL 2 MG CAPSULE PO PRN (16:07)
[2024-04-11] MEDS ORDERED: BENZOCAINE/MENTHOL (CHLORASEPTIC ) LOZENGE MM PRN (16:07)
[2024-04-11] MEDS ORDERED: guaiFENesin 600 MG TABLET.ER (FP) PO PRN (16:07)
[2024-04-11] MEDS ORDERED: hydrOXYzine PAMOATE 25 MG CAPSULE (FP) PO PRN (16:07)
[2024-04-11] MEDS ORDERED: NALOXONE (NARCAN) HCL 4 MG/0.1 ML SPRAY NS PRN (16:07)
[2024-04-11] MEDS ORDERED: DICYCLOMINE HCL 10 MG CAPSULE PO PRN (16:07)
[2024-04-11] MEDS ORDERED: IBUPROFEN 400 MG TABLET (FP) PO PRN (16:07)
[2024-04-11] MEDS ORDERED: POLYETHYLENE GLYCOL (HEALTHYLAX) 3350 17 GM PACKET PO PRN (16:07)
[2024-04-11] MEDS ORDERED: PRENATAL VITAMINS W/ FOLIC ACID TABLET (FP) PO ONE (16:54)
[2024-04-11] MEDS ORDERED: diazePAM 5 MG TABLET ONE (16:54)
[2024-04-11] MEDS: PRENATAL VITAMINS W/ FOLIC ACID TABLET (FP) PO SCH (16:58)
[2024-04-11] MEDS: diazePAM 5 MG TABLET PO SCH (16:59)
[2024-04-11] MEDS: methaDONE HCL 10 MG TABLET PO ONE (19:09)
[2024-04-11] MEDS: MELATONIN 5 MG TABLETS PO SCH (22:28)
[2024-04-11] MEDS: THIAMINE 100 MG TABLET PO SCH (22:28)
[2024-04-12] MEDS ORDERED: methaDONE HCL 10 MG TABLET PO SCH (08:00)
[2024-04-12] MEDS: methaDONE HCL 40 MG DISPERSABLE TABLET PO SCH (08:39)
[2024-04-12] MEDS: METHOCARBAMOL 500 MG TABLET PO PRN (10:19)
[2024-04-12] MEDS: diazePAM 5 MG TABLET PO PRN (12:37)
[2024-04-13] MEDS: diazePAM 5 MG TABLET PO SCH (05:49)
[2024-04-13] MEDS: GABAPENTIN 300 MG CAPSULE PO SCH (14:40)
[2024-04-14] MEDS: diazePAM 5 MG TABLET PO SCH (05:46)
[2024-04-14 11:34] LABS: HEMATOCRIT 37.7 % (35.4-49); HEMOGLOBIN 12.6 GM/dL (11.7-16.9); MCH 29.3 pg (25.7-33.7); MCHC 33.3 g/dl (32.0-35.9); MEAN PLT VOLUME 8.6 fl (7.5-11.1); PLATELET COUNT 200 10^3/uL (134-434); POTASSIUM 4.2 mmol/L (3.5-5.1); RBC 4.29 M/mm3 (4.00-5.60); RDW 14.4 % (11.9-15.9); WHITE BLOOD COUNT 5.1 K/mm3 (4.0-10.0)
[2024-04-14 11:37] LABS: CALCIUM 9.5 mg/dL (8.5-10.1)
[2024-04-14 11:38] LABS: ALBUMIN 3.6 g/dl (3.4-5.0); BLOOD UREA NITROGEN 14.5 mg/dL (7-18)
[2024-04-14 11:41] LABS: CREATININE 0.8 mg/dL (0.55-1.3)
[2024-04-14 11:43] LABS: BILIRUBIN,TOTAL 0.3 mg/dL (0.2-1); TOT PROT 7.8 g/dl (6.4-8.2)
[2024-04-15] MEDS: diazePAM 5 MG TABLET PO ONE (05:43)
[2024-04-15 09:30] VITALS: BP 135/76; PULSE 82; RESP 18; TEMP 97.7
[2024-04-15] MEDS: METHOCARBAMOL 500 MG TABLET PO PRN (09:44)
[2024-04-15] MEDS: hydrOXYzine PAMOATE 25 MG CAPSULE (FP) PO PRN (09:45)
== END 2024-04-15 10:20 | disposition other institution (70) | DRG 773 ==
LOC: YASAS 13:50 → Y3N 16:57
PROVIDERS: ADMIT Allergy & Immunology; ATTEND Surgery
PROC: HZ2ZZZZ Detoxification Services for Substance Abuse Treatment (ICD-10-PCS; principal; 2024-04-11)
DX: F10.230 Alcohol dependence with withdrawal, uncomplicated (principal); F13.230 Sedative, hypnotic or anxiolytic dependence with withdrawal, uncomplicated; F11.20 Opioid dependence, uncomplicated; F14.20 Cocaine dependence, uncomplicated; F17.210 Nicotine dependence, cigarettes, uncomplicated; F19.24 Other psychoactive substance dependence with psychoactive substance-induced mood disorder; F31.9 Bipolar disorder, unspecified; F41.9 Anxiety disorder, unspecified; Z86.59 Personal history of other mental and behavioral disorders
CPT/HCPCS: 36415; 80053; 80305; 80307; 85027; 93005; 93010

== ENCOUNTER 2024-11-03 17:12 | Inpatient (IN) | payer OTHER ==
[2024-11-03 17:40] VITALS: BMI 28.0
[2024-11-03] MEDS ORDERED: POLYETHYLENE GLYCOL (HEALTHYLAX) 3350 17 GM PACKET PO PRN (18:04)
[2024-11-03] MEDS ORDERED: BISMUTH SUBSALICYLATE 524 MG/30 ML PO PRN (18:04)
[2024-11-03] MEDS ORDERED: ACETAMINOPHEN 325 MG TABLET (FP) PO PRN (18:04)
[2024-11-03] MEDS ORDERED: BENZOCAINE/MENTHOL (CHLORASEPTIC ) LOZENGE MM PRN (18:04)
[2024-11-03] MEDS ORDERED: IBUPROFEN 600 MG TABLET (FP) PO PRN (18:04)
[2024-11-03] MEDS ORDERED: NALOXONE (NARCAN) HCL 4 MG/0.1 ML SPRAY NS PRN (18:04)
[2024-11-03] MEDS ORDERED: MAGNESIUM HYDROX 2400MG/30ML ORAL SUSPENSION 30 ML CUP PO PRN (18:04)
[2024-11-03] MEDS ORDERED: NICOTINE POLACRILEX 2 MG LOZENGE BC PRN (18:04)
[2024-11-03] MEDS ORDERED: LOPERAMIDE HCL 2 MG CAPSULE PO PRN (18:04)
[2024-11-03] MEDS ORDERED: NICOTINE POLACRILEX 2 MG GUM BUC PRN (18:04)
[2024-11-03] MEDS ORDERED: ONDANSETRON *ODT* 4 MG TABLET SL PRN (18:04)
[2024-11-03] MEDS ORDERED: DICYCLOMINE HCL 10 MG CAPSULE PO PRN (18:04)
[2024-11-03] MEDS ORDERED: guaiFENesin 600 MG TABLET.ER (FP) PO PRN (18:04)
[2024-11-03] MEDS ORDERED: MAG HYDROX/AL HYDROX/SIMETH 30 ML UNIT-DOSE CUP PO PRN (18:04)
[2024-11-03] MEDS ORDERED: BENZONATATE 200 MG CAPSULE PO PRN (18:04)
[2024-11-03] MEDS ORDERED: IBUPROFEN 400 MG TABLET (FP) PO PRN (18:04)
[2024-11-03] MEDS ORDERED: diazePAM 5 MG TABLET ONE (20:11)
[2024-11-03] MEDS: diazePAM 5 MG TABLET PO ONE (20:13)
[2024-11-03] MEDS: MELATONIN 5 MG TABLETS PO SCH (22:48)
[2024-11-03] MEDS: GABAPENTIN 300 MG CAPSULE PO SCH (22:48)
[2024-11-03] MEDS: diazePAM 5 MG TABLET PO SCH (22:48)
[2024-11-03] MEDS: METHOCARBAMOL 500 MG TABLET PO PRN (22:48)
[2024-11-03] MEDS: THIAMINE 100 MG TABLET PO SCH (22:48)
[2024-11-04] MEDS ORDERED: methaDONE HCL 10 MG TABLET PO SCH (08:45)
[2024-11-04] MEDS: PRENATAL VITAMINS W/ FOLIC ACID TABLET (FP) PO SCH (10:35)
[2024-11-04] MEDS: diazePAM 5 MG TABLET PO PRN (13:33)
[2024-11-04 14:56] LABS: HEMATOCRIT 41.9 % (40.1-51.0); HEMOGLOBIN 13.2 g/dL (13.7-17.5); MCHC 31.5 g/dl (32.3-36.5); MEAN CELL VOLUME 92.1 fl (79.0-92.2); MEAN PLT VOLUME 10.4 fl (9.4-12.4); PLATELET COUNT 159 x10^3/uL (163-337); RDW 13.3 % (12.1-15.9)
[2024-11-04 15:02] LABS: POTASSIUM 4.1 mmol/L (3.5-5.1)
[2024-11-04 15:05] LABS: ALBUMIN 3.2 g/dl (3.4-5.0)
[2024-11-04 15:06] LABS: BLOOD UREA NITROGEN 15.6 mg/dL (7-18)
[2024-11-04 15:12] LABS: BILIRUBIN,TOTAL 0.4 mg/dL (0.2-1); TOT PROT 6.5 g/dl (6.4-8.2)
[2024-11-05] MEDS: diazePAM 5 MG TABLET PO SCH (05:51)
[2024-11-06] MEDS: cloNIDine HCL 0.1 MG TABLET PO PRN (06:04)
[2024-11-06] MEDS: diazePAM 5 MG TABLET PO SCH (06:04)
[2024-11-07] MEDS: diazePAM 5 MG TABLET PO ONE (05:57)
[2024-11-07 09:02] VITALS: BP 119/72; PULSE 76; RESP 18; TEMP 97.6
== END 2024-11-07 09:21 | disposition home or self-care (01) | DRG 773 ==
LOC: YASAS 17:12 → Y3N 20:21
PROVIDERS: ADMIT Allergy & Immunology; ATTEND Allergy & Immunology
PROC: HZ2ZZZZ Detoxification Services for Substance Abuse Treatment (ICD-10-PCS; principal; 2024-11-03)
DX: F10.230 Alcohol dependence with withdrawal, uncomplicated (principal); F13.230 Sedative, hypnotic or anxiolytic dependence with withdrawal, uncomplicated; F11.20 Opioid dependence, uncomplicated; F14.10 Cocaine abuse, uncomplicated; F31.9 Bipolar disorder, unspecified; G40.909 Epilepsy, unspecified, not intractable, without status epilepticus; B18.2 Chronic viral hepatitis C; Z86.718 Personal history of other venous thrombosis and embolism; Z87.891 Personal history of nicotine dependence
CPT/HCPCS: 36415; 80053; 80305; 80307; 85027; 86780; 93005; 93010

== ENCOUNTER 2025-02-13 14:07 | Inpatient (IN) | payer OTHER ==
[2025-02-13] MEDS ORDERED: IBUPROFEN 600 MG TABLET (FP) PO PRN (14:57)
[2025-02-13] MEDS ORDERED: MAGNESIUM HYDROX 2400MG/30ML ORAL SUSPENSION 30 ML CUP PO PRN (14:57)
[2025-02-13] MEDS ORDERED: BENZONATATE 200 MG CAPSULE PO PRN (14:57)
[2025-02-13] MEDS ORDERED: NALOXONE (NARCAN) HCL 4 MG/0.1 ML SPRAY NS PRN (14:57)
[2025-02-13] MEDS ORDERED: ONDANSETRON *ODT* 4 MG TABLET SL PRN (14:57)
[2025-02-13] MEDS ORDERED: guaiFENesin 600 MG TABLET.ER (FP) PO PRN (14:57)
[2025-02-13] MEDS ORDERED: BENZOCAINE/MENTHOL (CHLORASEPTIC ) LOZENGE MM PRN (14:57)
[2025-02-13] MEDS ORDERED: MAG HYDROX/AL HYDROX/SIMETH 30 ML UNIT-DOSE CUP PO PRN (14:57)
[2025-02-13] MEDS ORDERED: LOPERAMIDE HCL 2 MG CAPSULE PO PRN (14:57)
[2025-02-13] MEDS ORDERED: POLYETHYLENE GLYCOL (HEALTHYLAX) 3350 17 GM PACKET PO PRN (14:57)
[2025-02-13] MEDS ORDERED: ACETAMINOPHEN 325 MG TABLET (FP) PO PRN (14:57)
[2025-02-13] MEDS ORDERED: BISMUTH SUBSALICYLATE 524 MG/30 ML PO PRN (14:57)
[2025-02-13] MEDS ORDERED: DICYCLOMINE HCL 10 MG CAPSULE PO PRN (14:57)
[2025-02-13 15:03] VITALS: BMI 22.4
[2025-02-13] MEDS ORDERED: PRENATAL VITAMINS W/ FOLIC ACID TABLET (FP) PO ONE (18:24)
[2025-02-13] MEDS: PRENATAL VITAMINS W/ FOLIC ACID TABLET (FP) PO SCH (18:26)
[2025-02-13] MEDS: MELATONIN 5 MG TABLETS PO SCH (22:11)
[2025-02-13] MEDS: THIAMINE 100 MG TABLET PO SCH (22:11)
[2025-02-14] MEDS: hydrOXYzine PAMOATE 25 MG CAPSULE (FP) PO PRN (10:37)
[2025-02-14] MEDS: METHOCARBAMOL 500 MG TABLET PO PRN (10:38)
[2025-02-15] MEDS: GABAPENTIN 300 MG CAPSULE PO SCH (14:12)
[2025-02-17] MEDS: IBUPROFEN 400 MG TABLET (FP) PO PRN (22:02)
[2025-02-18 10:01] VITALS: BP 120/75; PULSE 71; RESP 14; TEMP 97.5
[2025-02-18] MEDS ORDERED: BENZOCAINE 20 % GEL TUBE MM PRN (10:54)
== END 2025-02-18 11:41 | disposition other institution (70) | DRG 773 ==
LOC: YASAS 14:07 → Y3N 18:34
PROVIDERS: ADMIT Allergy & Immunology; ATTEND Allergy & Immunology
PROC: HZ2ZZZZ Detoxification Services for Substance Abuse Treatment (ICD-10-PCS; principal; 2025-02-13)
DX: F10.230 Alcohol dependence with withdrawal, uncomplicated (principal); F13.230 Sedative, hypnotic or anxiolytic dependence with withdrawal, uncomplicated; F11.20 Opioid dependence, uncomplicated; F12.20 Cannabis dependence, uncomplicated; F17.210 Nicotine dependence, cigarettes, uncomplicated; F19.282 Other psychoactive substance dependence with psychoactive substance-induced sleep disorder; F19.280 Other psychoactive substance dependence with psychoactive substance-induced anxiety disorder; F43.10 Post-traumatic stress disorder, unspecified; G40.909 Epilepsy, unspecified, not intractable, without status epilepticus; Z86.718 Personal history of other venous thrombosis and embolism; Z86.19 Personal history of other infectious and parasitic diseases; Z59.00 Homelessness unspecified
CPT/HCPCS: 36415; 80307; 93005; 93010